=== PATIENT | female | born 1940 | race Two or more races ===

== ENCOUNTER 2017-07-05 20:13 | Inpatient (IN) | payer MEDICARE, OTHER ==
[~2017-07-05] VITALS: Ht 157.5 cm; Wt 52.2 kg
--- NOTE | 2017-07-05 20:20 | NUR ---
PT BIB[facility] FROM [facility] FOR HYPOTENSION, PER EMS, PT IS USUALLY HYPOTENSIVE, PT ON MONITOR, VSS, BP IS NORMAL, NO FLUID WAS GIVEN PRIRO TO ARRIVAL, PT IN GOWN, IV PLACED LABS DRAWN, PT IS CONTRACTED, PT IS NON VERBAL, MD AT BEDSIDE WILL CONTINUE TO MONITOR.
[2017-07-05 20:54] LABS: BASOPHILS # (AUTO) 0.1 /CMM (0.0-0.2); BASOPHILS % (AUTO) 1.1 % (0.0-2.0); EOSINOPHILS # (AUTO) 0.3 /CMM (0.0-0.7); EOSINOPHILS % (AUTO) 3.5 % (0.0-6.0); HEMATOCRIT 33 % (33-45); HEMOGLOBIN 10.9 g/dL (11.5-14.8); LYMPHOCYTES # (AUTO) 1.8 /CMM (0.8-4.8); LYMPHOCYTES % (AUTO) 22.1 % (20.0-44.0); MEAN CORPUSCULAR HEMOGLOBIN 31 PG (26.0-33.0); MEAN CORPUSCULAR HGB CONC 33 g/dl (31.0-36.0); MEAN CORPUSCULAR VOLUME 93 fL (82-100); MONOCYTES # (AUTO) 0.4 /CMM (0.1-1.30); MONOCYTES % (AUTO) 5.4 % (2.0-12.0); NEUTROPHILS # (AUTO) 5.5 /CMM (1.8-8.9); NEUTROPHILS % (AUTO) 67.9 % (43.0-81.0); PLATELET COUNT (AUTO) 211 /CMM (150-450); RDW COEFFICIENT OF VARIATION 13.4 (11.5-15.0); RED BLOOD CELL COUNT(AUTO) 3.53 MIL/uL (4.0-5.2); WHITE BLOOD COUNT (AUTO) 8.1 K/uL (4.3-11.0)
[2017-07-05 21:11] LABS: INR 0.92 (0.87-1.13); PROTHROMBIN TIME 9.6 SECS (9.5-12.7)
[2017-07-05 21:18] LABS: ALANINE AMINOTRANSFERASE 25 U/L (12-78); ALBUMIN 2.3 g/dL (3.4-5.0); ALKALINE PHOSPHATASE 60 U/L (46-116); ASPARTATE AMINOTRANSFERASE 42 U/L (15-37); BILIRUBIN,TOTAL 0.5 mg/dL (0.2-1.0); CALCIUM, SERUM 8.3 mg/dL (8.5-10.1); CARBON DIOXIDE 26 mmol/L (21-32); CHLORIDE 97 mmol/L (98-107); CREATININE 3.6 mg/dL (0.6-1.3); GLUCOSE 305 mg/dL (74-106); POTASSIUM 4.3 mmol/L (3.5-5.1); SODIUM SERUM 135 mmol/L (136-145); TOTAL PROTEIN, SERUM 6.8 g/dL (6.4-8.2)
[2017-07-05 21:19] LABS: TROPONIN I < 0.017 ng/mL (0.00-0.056)
[2017-07-05 21:23] LABS: UREA NITROGEN, BLOOD 184 mg/dL (7-18)
[2017-07-05] MEDS ORDERED: IV NS 0.9% 1,000 ML BAG IV ONE ×2 (21:30→22:00)
--- NOTE | 2017-07-05 21:43 | NUR ---
CALLED NURSING BUSINESS EDUCATION INSTRUCTOR FOR M/S BED
[2017-07-05] MEDS ORDERED: PIPERACILLIN /TAZOBACTAM 2.25 G VIAL IV ONE (21:45)
[2017-07-05] MEDS ORDERED: PIPERACILLIN /TAZOBACTAM 2.25 G in IV D5W 50 ML IV ONE (22:00)
--- NOTE | 2017-07-05 22:05 | NUR ---
PATIENT ASSIGNED TO MS [id number]
--- NOTE | 2017-07-05 22:43 | NUR ---
IN AND OUT CATHETER PREFORMED BY DYLON DUFFY PER MD ORDER, URINE COLLECTED AND SENT TO LAB MD MADE AWARE WILL CONTINUE TO MONITOR.
--- NOTE | 2017-07-05 22:50 | NUR ---
RN NOTE PT ARRIVED ON UNIT. NON VERBAL BUT AWAKE AND EYE OPENING. NO S/S OF ANY DISTRESS, BREATHING NON-LABORED AND EVEN. SKIN WARM TO TOUCH, NON-DIAPHORETIC. TELE SHOWS ST IN 100'S. SKIN ISSUES DOCUMENTED. IV FLUID AND ABX INFUSING FROM E.R. SEPSIS PROTOCOL WAS INITIATED. G TUBE INTACT AND PATENT, FLUSHED. IV IAP. WILL CONT TO MONITOR.
[2017-07-05 22:59] LABS: BILIRUBIN,URINE NEGATIVE (NEGATIVE); BLOOD, URINE NEGATIVE Ery/uL (NEGATIVE); COLOR,URINE YELLOW (YELLOW); KETONES,URINE NEGATIVE (NEGATIVE); LEUKOCYTE ESTERASE ,URINE NEGATIVE (NEGATIVE); NITRITE, URINE NEGATIVE (NEGATIVE); PH,URINE 5.5 (5.0-8.0); PROTEIN,URINE NEGATIVE (NEGATIVE); UGLUCOSE NEGATIVE (NEGATIVE); UROBILINOGEN,URINE 0.2 EU/dL (0.2)
[2017-07-05 23:02] LABS: APPEARANCE,URINE HAZY (CLEAR)
[2017-07-05 23:10] LABS: BACTERIA,URINE None seen /HPF (None Seen); CALCIUM OXALATE CRYSTALS,UR Moderate /HPF (None Seen); RBC,URINE NONE SEEN /HPF (0-2); SQUAMOUS EPITHELIAL CELL,UR Few /HPF (None Seen); URINE AMORPHOUS URATE Many /HPF (None Seen); WBC,URINE NONE SEEN /HPF (0-3)
[2017-07-05 23:50] VITALS: BP 98/50
[2017-07-06] VITALS (7 sets, daily range): BP systolic 99–144; BP diastolic 52–82
--- NOTE | 2017-07-06 | NUR ---
RN NOTE SPOKE WITH DR DAN, ORDERS CARRIED OUT. F/C INSERTED.
[2017-07-06] MEDS ORDERED: METF500T4 PO (00:16)
[2017-07-06] MEDS ORDERED: INSU3INS9 SQ (00:16)
[2017-07-06] MEDS ORDERED: MULT-331 PO (00:16)
[2017-07-06] MEDS ORDERED: LISI10TA59 GT (00:16)
[2017-07-06] MEDS ORDERED: ACET-868 PO (00:16)
[2017-07-06] MEDS ORDERED: METO25TA6 PO (00:16)
[2017-07-06] MEDS ORDERED: NA P133E RC (00:16)
[2017-07-06] MEDS ORDERED: ASPI325T2 PO (00:16)
[2017-07-06] MEDS ORDERED: DOCU-25 PO (00:16)
[2017-07-06] MEDS ORDERED: NUT.237L67 PO (00:21)
[2017-07-06] MEDS ORDERED: NUTR100037 GT (00:41)
[2017-07-06] MEDS ORDERED: RENAL NOVASOURCE 1,000 ML BOTTLE GT PRN ×3 (01:00→10:00)
[2017-07-06] MEDS ORDERED: IV NS 0.9% 1,000 ML BAG IV PRN (01:00)
[2017-07-06] MEDS: BLOOD SUGAR DIAGNOSTIC 1 EACH STRIP IN SCH ×5 (01:24→22:11)
[2017-07-06] MEDS: INSULIN REGULAR, HUMAN 100 UNIT/ML 3 ML VIAL SQ PRN ×5 (01:29→22:15)
[2017-07-06] MEDS ORDERED: DEXTROSE 50%-WATER 50 ML DISP.SYRIN IV PRN (01:30)
[2017-07-06] MEDS ORDERED: BLOOD SUGAR DIAGNOSTIC 1 EACH STRIP IN SCH (01:30)
--- NOTE | 2017-07-06 06:53 | NUR ---
RN OTE NO SIGNFICANT CHANGES OVERNIGHT. PT NON-VERBAL, EYE OPENING. TELE SHOWS ST, NO S/S OF ANY DISTRESS AT THIS TIME. BREATHING NON-LABORED AND EVEN. IV INTACT AND PATENT, TOLERATING FLUIDS WELL. F/C DRAINING. GTF INFUSING WELL. ALL NEEDS ATTENED TO, WILL F/U WITH DAY SHIFT FOR SUMAN.
[2017-07-06 07:00] LABS: EOSINOPHILS # (AUTO) 0.2 /CMM (0.0-0.7); EOSINOPHILS % (AUTO) 3.3 % (0.0-6.0); LYMPHOCYTES # (AUTO) 0.9 /CMM (0.8-4.8); MEAN CORPUSCULAR VOLUME 93 fL (82-100); MONOCYTES # (AUTO) 0.4 /CMM (0.1-1.30); RDW COEFFICIENT OF VARIATION 14.5 (11.5-15.0)
[2017-07-06 07:04] LABS: BASOPHILS % (AUTO) 0.4 % (0.0-2.0); HEMATOCRIT 34 % (33-45); HEMOGLOBIN 11.2 g/dL (11.5-14.8); MEAN CORPUSCULAR HEMOGLOBIN 31 PG (26.0-33.0); MEAN CORPUSCULAR HGB CONC 33 g/dl (31.0-36.0); MONOCYTES % (AUTO) 6.7 % (2.0-12.0); NEUTROPHILS # (AUTO) 4.7 /CMM (1.8-8.9); NEUTROPHILS % (AUTO) 75.6 % (43.0-81.0); RED BLOOD CELL COUNT(AUTO) 3.61 MIL/uL (4.0-5.2)
--- NOTE | 2017-07-06 07:30 | NUR ---
N RECEIVED PATIENT ON BED, NONVERBAL, OPENS EYES, NSR ON MONITOR,GTUBE FEEDING W/ NOVASOURCE AT 30ML/HOUR INFUSING WELL.REPOSITIONED FOR COMFORT, WILL MONITOR PATIENT'S CONDITION.
[2017-07-06 07:34] LABS: CALCIUM, SERUM 7.7 mg/dL (8.5-10.1); CARBON DIOXIDE 22 mmol/L (21-32); CHLORIDE 105 mmol/L (98-107); CREATININE 2.8 mg/dL (0.6-1.3); GLUCOSE 264 mg/dL (74-106); MAGNESIUM 2.8 mg/dL (1.8-2.4); PHOSPHORUS 3.7 mg/dL (2.5-4.9); POTASSIUM 4.2 mmol/L (3.5-5.1); SODIUM SERUM 143 mmol/L (136-145)
[2017-07-06 07:41] LABS: UREA NITROGEN, BLOOD 151 mg/dL (7-18)
[2017-07-06] MEDS ORDERED: IV NS 0.9% 1,000 ML IV PRN (09:00)
[2017-07-06] MEDS ORDERED: NA PHOS,M-B/NA PHOS,DI-BA 1 EA ENEMA RC PRN (09:30)
[2017-07-06 10:15] LABS: WHITE BLOOD COUNT (AUTO) 6.3 K/uL (4.3-11.0)
[2017-07-06 10:17] LABS: LYMPHOCYTES % (MANUAL) 22 % (16-48); MONOCYTES % (MANUAL) 1 % (0-11.0); NEUTROPHILS % (MANUAL) 77 (42-76)
[2017-07-06 10:18] LABS: PLATELET COUNT (AUTO) 179 /CMM (150-450)
--- NOTE | 2017-07-06 11:00 | NUR ---
ms frances was seen by dr. frankel w/ orders made and carried out.
[2017-07-06] MEDS ORDERED: ACETAMINOPHEN 325 MG TABLET PO PRN (13:00)
--- NOTE | 2017-07-06 17:15 | NUR ---
ms rn blood sugar - 288 - 6 units of regular insulin given sq, family at bedside, cannot bring soliqua insulin, pharmacy is aware, will replace w/ levemir.
--- NOTE | 2017-07-06 17:19 | NUR ---
ms rn patient pulled out her iv, will replace it.
--- NOTE | 2017-07-06 19:20 | NUR ---
RN NOTES RECEIVED PT AWAKE, HOB ELEVATED, SO SOB, NOT IN DISTRESS, ON ROOM AIR AND TOLERATED WELL.PT ALERT, NOEN VERBAL, OPENS EYES TO TACTILE AND VERBAL STIMULI. NO SIGNS OF PAIN AND DISCOMFORT NOTED. IV ACCESS ON RIGHT UPPER ARM PATENT AND INTACT. GT INTACT WITH ONGOING JHON SOURCE RENAL AT 30CC/HR, NO RESIDUAL NOTED. DRESSING ON LEFT FOOT INTACT, DRY AND CLEAN. PT NOTED CONSTANTLY MOVING IN BED. KEPT BED IN THE LOWEST POSITION, LOCKED, SIDE RAILS X2 UP, BED ALARM ON, WITH CALL LIGHT WITH IN REACH. SAFETY MEASURES IN PLACED. WILL CONTINUE TO MONITOR PT.
[2017-07-06] MEDS ORDERED: INSULIN DETEMIR 100 UNIT/ML CARTRIDGE SQ SCH (22:00)
[2017-07-06] MEDS: DOCUSATE SODIUM 100 MG CAPSULE PO SCH (22:11)
--- NOTE | 2017-07-06 22:11 | NUR ---
RN NOTES BLOOD SUGAR CHECKED 412 MG/DL, 10 UNITS REGULAR INSULIN GIVEN SUBCU, SCHEDULED LEVEMIR [address] RICK MADE AWARE, NO NEW ORDERS MADE.
[2017-07-07] VITALS: BP 137/79
[2017-07-07 04:00] VITALS: BP 133/72
[2017-07-07 06:32] LABS: BASOPHILS % (AUTO) 0.3 % (0.0-2.0); EOSINOPHILS # (AUTO) 0.2 /CMM (0.0-0.7); HEMATOCRIT 36 % (33-45); HEMOGLOBIN 11.8 g/dL (11.5-14.8); LYMPHOCYTES # (AUTO) 0.9 /CMM (0.8-4.8); LYMPHOCYTES % (AUTO) 15.3 % (20.0-44.0); MEAN CORPUSCULAR HEMOGLOBIN 31 PG (26.0-33.0); MEAN CORPUSCULAR HGB CONC 33 g/dl (31.0-36.0); MEAN CORPUSCULAR VOLUME 94 fL (82-100); MONOCYTES # (AUTO) 0.5 /CMM (0.1-1.30); MONOCYTES % (AUTO) 9.1 % (2.0-12.0); NEUTROPHILS # (AUTO) 4.1 /CMM (1.8-8.9); NEUTROPHILS % (AUTO) 72.3 % (43.0-81.0); PLATELET COUNT (AUTO) 250 /CMM (150-450); RDW COEFFICIENT OF VARIATION 14.9 (11.5-15.0); RED BLOOD CELL COUNT(AUTO) 3.87 MIL/uL (4.0-5.2); WHITE BLOOD COUNT (AUTO) 5.7 K/uL (4.3-11.0)
[2017-07-07] MEDS: BLOOD SUGAR DIAGNOSTIC 1 EACH STRIP IN SCH ×2 (06:32→12:30)
--- NOTE | 2017-07-07 06:32 | NUR ---
RN NOTES BLOOD SUGAR CHECKED 446 MG/DL. 10 UNITS REGULAR INSULIN GIVEN SUBCU. WILL PAGED DR DAN. WILL CONTINUE TO MONITOR PT.
[2017-07-07] MEDS: INSULIN REGULAR, HUMAN 100 UNIT/ML 3 ML VIAL SQ PRN ×3 (06:34→18:00)
[2017-07-07 06:46] LABS: ALANINE AMINOTRANSFERASE 26 U/L (12-78); ALBUMIN 2.5 g/dL (3.4-5.0); ALKALINE PHOSPHATASE 76 U/L (46-116); ASPARTATE AMINOTRANSFERASE 25 U/L (15-37); BILIRUBIN,TOTAL 0.3 mg/dL (0.2-1.0); CALCIUM, SERUM 9.2 mg/dL (8.5-10.1); CARBON DIOXIDE 27 mmol/L (21-32); CHLORIDE 116 mmol/L (98-107); CREATININE 1.6 mg/dL (0.6-1.3); MAGNESIUM 2.8 mg/dL (1.8-2.4); PHOSPHORUS 1.8 mg/dL (2.5-4.9); POTASSIUM 3.5 mmol/L (3.5-5.1); SODIUM SERUM 152 mmol/L (136-145); TOTAL PROTEIN, SERUM 7.1 g/dL (6.4-8.2)
[2017-07-07 06:53] LABS: GLUCOSE 459 mg/dL (74-106)
[2017-07-07 06:54] LABS: UREA NITROGEN, BLOOD 89 mg/dL (7-18)
--- NOTE | 2017-07-07 07:30 | NUR ---
RN NOTES PT ASLEEP, HOB ELEVATED, NO SOB, NOT IN DISTRESS, ON ROOM AIR AND TOLERATED WELL. VITAL SIGNS STABLE, AFEBRILE. TELEMONITOR READS SINUS TACH AT 124. NO SIGNS OF PAIN AND DISCOMFORT. NO EPISODE OF NAUSEA AND VOMITING. SKIN CARE AND WOUND CARE DONE. KEPT CLEAN AND DRY. TURNED AND REPOSITION Q2H. BOTH HEELS OFF LOADED. AWAITING FOR DR DAN TO CALL BACK. WILL ENDORSE TO MORNING RN FOR CONTINUITY OF CARE.
--- NOTE | 2017-07-07 07:30 | NUR ---
MEASUREMENT ANALYST NOTES RECEIVED PATIENT AWAKE, HOB ELEVATED, NO ACUTE DISTRESS, NO SOB NOTED, ON ROOM AIR AND TOLERATED WELL. PATIENT ALERT, NON VERBAL, OPENS EYES TO TACTILE AND VERBAL STIMULI. NO SIGNS OF PAIN AND DISCOMFORT NOTED. IV SITE PATENT AND INTACT. GT INTACT WITH ONGOING NOVASOURCE RENAL AT 30CC/HR, NO RESIDUAL NOTED. DRESSING ON LEFT FOOT INTACT, DRY AND CLEAN. KEPT BED IN THE LOWEST POSITION, LOCKED, SIDE RAILS X2 UP, BED ALARM ON, WITH CALL LIGHT WITH IN REACH. SAFETY MEASURES IN PLACED. WILL CONTINUE TO MONITOR ACCORDINGLY.
[2017-07-07 08:00] VITALS: BP 115/72
[2017-07-07] MEDS ORDERED: MULTIVITAMINS,THERAGRAN 1 UDTAB TABLET PO SCH (09:00)
--- NOTE | 2017-07-07 09:03 | NUR ---
RN NOTES RECEIVED A CALL FROM DR VERNON. NOTIFIED HIM ABOUT PATIENT BLOOD GLUCOSE LEVELS. PER MD, HE'S GOING TO SEE THE PATIENT TODAY. NO NEW ORDERS.
[2017-07-07] MEDS: VIT B CMPLX 3/FA/VIT C/BIOTIN 1 TAB TABLET PO SCH (10:00)
[2017-07-07] MEDS: ASPIRIN 325 MG TABLET PO SCH (10:00)
[2017-07-07 12:00] VITALS: BP_SYST 132; BP_SYST 150; BP_DIAS 94
[2017-07-07] MEDS: RENAL NOVASOURCE 1,000 ML BOTTLE GT PRN (12:49)
[2017-07-07 16:00] VITALS: BP 135/90
[2017-07-07] MEDS ORDERED: NEUTRA PHOS 1 POWD.PACKET GT ONE (16:00)
--- NOTE | 2017-07-07 16:00 | NUR ---
RN NOTES CALLED DR VERNON REGARDING PATIENT'S VTE SCORE, NEW ORDER OF HEPARIN 5000 UNITS SQ EVERY 12 HOURS.
--- NOTE | 2017-07-07 16:10 | NUR ---
RN NOTES RECEIVED A CALL FROM MICROBIOLOGY, PATIENT POSITIVE FOR MRSA NARES. NOTIFIED DR VERNON.
[2017-07-07] MEDS ORDERED: DEXTROSE 50%-WATER 50 ML DISP.SYRIN IV PRN (16:30)
[2017-07-07] MEDS: BLOOD SUGAR DIAGNOSTIC 1 EACH STRIP VI SCH ×2 (17:43→21:20)
[2017-07-07] MEDS: IV 1/2NS 1000 ML 1,000 ML IV PRN (17:48)
--- NOTE | 2017-07-07 18:44 | NUR ---
CHIEF LIBRARIAN CIRCULATION DEPARTMENT NOTES PATIENT IN BED RESTING. NO ACUTE DISTRESS, NO SOB NOTED. ALL NEEDS ATTENDED AND PROVIDED. KEPT PATIENT CLEAN AND DRY. REPOSITIONED PATIENT EVERY 2 HOURS. BED IN LOW POSITION, SIDERAILS UPX2. CALL LIGHT IN REACH. WILL ENDORSED TO INTERNET SALES REPRESENTATIVE RN FOR SUMAN.
--- NOTE | 2017-07-07 19:00 | NUR ---
RN NOTES RECEIVED PT AWAKE, NON VERBAL, OPEN EYES, NOT IN ACUTE DISTRESS, ON ROOM AIR AND TOLERATED WELL. GT INTACT WITH ONGOING NOVOSOURCE RENAL AT 30CC/HR, NO RESIDUAL NOTED. KEPT BED IN THE LOWEST POSITION, LOCKED, SIDE RAILS X2 UP, CALL LIGHT WITH IN REACH. SAFETY MEASURES PLACED. WILL CONTINUE TO MONITOR.
[2017-07-07 20:00] VITALS: BP 167/90
[2017-07-07] MEDS: MUPIROCIN OINT 2% 22 GM TUBE SCH (21:12)
[2017-07-07] MEDS: HEPARIN SODIUM, PORCINE 5000 UNITS/1 ML VIAL SQ SCH (21:13)
[2017-07-07] MEDS: DOCUSATE SODIUM 100 MG CAPSULE PO SCH (21:13)
[2017-07-07] MEDS: *INSULIN REGULAR(HUMULIN R)HUM 100 UNIT/ML VIAL SQ PRN (21:23)
[2017-07-07] MEDS ORDERED: INSULIN DETEMIR 100 UNIT/ML CARTRIDGE SQ SCH (22:00)
[2017-07-08] VITALS (8 sets, daily range): BP systolic 102–163; BP diastolic 84–96
[2017-07-08] MEDS: IV 1/2NS 1000 ML 1,000 ML IV PRN ×2 (03:54→15:56)
[2017-07-08] MEDS: BLOOD SUGAR DIAGNOSTIC 1 EACH STRIP VI SCH ×4 (05:39→21:45)
[2017-07-08] MEDS: INSULIN REGULAR, HUMAN 100 UNIT/ML 3 ML VIAL SQ PRN ×3 (05:41→18:24)
--- NOTE | 2017-07-08 06:17 | NUR ---
BODY WORKER CLOSING NOTES PATIENT COMFORTABLY ASLEEP AND EASILY AWAKEN, HEAD OF BED ELEVATED FOR BETTER LUNG EXPANSION. TOLERATING ROOM AIR 02 SAT 98%. IV HYDRATION ONGOING NS 0.45 NS AT 100 CC, IV SITE NO S/S OF INFILTRATED, NOT IN ACUTE DISTRESS. RESPIRATIONS EVEN AND UNLABORED, NO SOB, NO COUGH, SKIN WARM AND DRY TO TOUCH, AFEBRILE, ALL NURSING CARE NEEDS PROVIDED AND RENDERED, NEEDS ATTENDED AND ANTICIPATED, KEPT CLEAN AND DRY AND COMFORTABLE, BLADDER NOT DISTENDED, GOOD SKIN CARE PROVIDED. FREQUENT VISUAL CHECK DONE FOR SAFETY EVERY 2 HOURS. REPOSITIONED EVERY 2 HOURS FOR COMFORT AND SKIN MGT. SAFE HAZARD FREE ENVIRONMENT PROVIDED. CALL LIGHT WITHIN EASY TO REACH, ON LOW BED AT ALL TIMES TO ENSURE SAFETY, WILL ENDORSE TO THE NEXT SHIFT CONTINUE PLAN OF CARE. NO S/S OF HYPO/HYPERGLYCEMIA, F/C INTACT DRAINING YELLOW VIA GRAVITY WITH NO SEDIMENTS, NO HEMATURIA, NO CLOUDINESS. GOOD FC CARE PROVIDED. ATTACH TO TELE MONITOR WITH READING OF 98'S M.D AWARE
--- NOTE | 2017-07-08 07:33 | NUR ---
INFORMATION SYSTEMS SUPERVISOR NOTES RECEIVED PATIENT IN BED RESTING COMFORTABLY. NO ACUTE DISTRESS, NO SOB NOTED. HOB ELEVATED FOR BETTER LUNG EXPANSION. ON ROOM AIR WITH 98% SATURATION. IV SITE INTACT AND PATENT, RUNNING 0.45 NS AT 100 ML/HR. SKIN WARM AND DRY TO TOUCH, AFEBRILE. GTUBE IN PLACE, SITE CLEAN AND DRY. KEPT PATIENT SAFE AND COMFORTABLE. BED IN LOW POSITION, SIDERAILSUPX2, LOCKED, CALL LIGHT WITHIN REACH. WILL CONTINUE TO MONITOR ACCORDINGLY.
[2017-07-08 08:06] LABS: CALCIUM, SERUM 8.3 mg/dL (8.5-10.1); CARBON DIOXIDE 24 mmol/L (21-32); CHLORIDE 118 mmol/L (98-107); CREATININE 1.3 mg/dL (0.6-1.3); PHOSPHORUS 2.2 mg/dL (2.5-4.9); POTASSIUM 3.7 mmol/L (3.5-5.1); SODIUM SERUM 155 mmol/L (136-145); UREA NITROGEN, BLOOD 43 mg/dL (7-18)
[2017-07-08 08:36] LABS: GLUCOSE 360 mg/dL (74-106)
[2017-07-08] MEDS: ASPIRIN 325 MG TABLET PO SCH (09:29)
[2017-07-08] MEDS: VIT B CMPLX 3/FA/VIT C/BIOTIN 1 TAB TABLET PO SCH (09:29)
--- NOTE | 2017-07-08 09:30 | NUR ---
RN NOTES WOUND CONSULT NURSE ON BED SIDE.
[2017-07-08] MEDS: MUPIROCIN OINT 2% 22 GM TUBE SCH ×2 (09:31→21:44)
[2017-07-08] MEDS: HEPARIN SODIUM, PORCINE 5000 UNITS/1 ML VIAL SQ SCH ×2 (09:33→21:45)
--- NOTE | 2017-07-08 10:22 | NUR ---
WOUND CARE CONSULT PATIENT SEEN AND SKIN INTEGRITY ASSESSMENT DONE. SEE STATISTICAL PROGRAMMER ANALYST ASSESSMENT IN PCS FOR TODAY ALONG WITH ALL RECOMMENDATIONS. CONTINUE BILATERAL HEEL FLOATING, TURNING Q 2 HOURS PATIENT CONDITION PERMITS AND USE OF Z GUARD FOR SKIN/MOISTURE MANAGEMENT. ALL DISCUSSED WITH NURSING AT THE BEDSIDE. JAIRON ISOFLEX LOW AIRLOSS SPECIALTY BED IN USE. CONTINUE ALL PREVENTION MEASURES PER CURRENT PLAN OF CARE. Addendum: 07/08/17 at 1024 by CHARISMA ODONNELL WNDNU Amended: Links added.
[2017-07-08] MEDS ORDERED: HYDROGEL DRESSING 90 GM TUBE TP PRN (10:30)
[2017-07-08] MEDS: HYDROGEL DRESSING 90 GM TUBE TP SCH (12:39)
[2017-07-08] MEDS: Z GUARD REMEDY 2 OZ OINT TP SCH (12:40)
[2017-07-08] MEDS ORDERED: NEUTRA PHOS 1 POWD.PACKET NG ONE (13:00)
[2017-07-08] MEDS: RENAL NOVASOURCE 1,000 ML BOTTLE GT PRN (14:00)
--- NOTE | 2017-07-08 18:53 | NUR ---
SOLDERER ASSEMBLY REPAIR CLOSING NOTES PATIENT IN BED RESTING. NO ACUTE DISTRESS, NO SOB NOTED. IV SITE INTACT AND PATENT. GTUBE IN PLACE. ALL NEEDS ATTENDED AND PROVIDED. REPOSITION PATIENT EVERY 2 HOURS. WOUND CARE DONE. KEPT PATIENT SAFE AND COMFORTABLE. BED IN LOW POSITION, LOCKED, SIDERAILS UP X2, HOB ELEVATED, CALL LIGHT IN REACH. WILL ENDORSED TO OFFSET PRINTING OPERATOR RN FOR CONTINUITY OF CARE.
--- NOTE | 2017-07-08 19:50 | NUR ---
RN INITIAL NOTES: RECEIVED REPORT FROM FLORINA DUFFY, PT IN BED, NON VERBAL OPEN EYES, ON ROOM AIR RESPIRATION EVEN AND UNLABORED, NO FACIAL GRIMACE NOTED, ON SINUS TACH HR 105, PT HAS IV ACCESS ON JENNIFER, PATENT AND FLUSHING WELL, INFUSING WITH 0.45 NS AT 100ML/HR. ALSO PT HAS GTUBE FEEDING RECEIVING NOVASOURCE RENAL AT 30CC/HR, SAFETY PRECAUTIONS FOR FALL INITIATED CALL LIGHT IN REACH, BLE OFFLOADED, PT TO HAVE 200ML OF FREE WATER FLUSH Q4HR ORDERED. WILL CONTINUE TO MONITOR
--- NOTE | 2017-07-08 20:30 | NUR ---
GTUBE RESIDUAL CHECK: PATENCY CHECK PERFORMED AND GTUBE RESIDUAL WAS CHECKED AT THIS TIME, OBTAINED 5ML OF RESIDUAL, ABDOMEN IS SOFT AND WITH ACTIVE BOWEL SOUND NOTED UPON AUSCULTATION
--- NOTE | 2017-07-08 20:45 | NUR ---
WOUND: NOTED OPEN BLISTER ON PT'S RFA, CLEANSED WITH NS PAT DRY HYDROGEL AND MEPILEX APPLIED, TOOK PHOTO AND ATTACHED TO CHART
[2017-07-08] MEDS: INSULIN DETEMIR 100 UNIT/ML CARTRIDGE SQ SCH (21:47)
[2017-07-08] MEDS: *INSULIN REGULAR(HUMULIN R)HUM 100 UNIT/ML VIAL SQ PRN (21:49)
--- NOTE | 2017-07-08 21:50 | NUR ---
BLOOD SUGAR: PT'S BLOOD SUGAR CHECK REVEAL 220, 4UNITS OF INSULIN GIVEN PER SLIDING SCALE, PT ON GTUBE FEEDING NOVASOURCE RENAL AT 30CC/HR, ALSO PT RECEIVING 1/2 NS AT 100ML/HR, WILL MONITOR PT FOR ANY S/S OF HYPOGLYCEMIA
[2017-07-08] MEDS: DOCUSATE SODIUM 100 MG CAPSULE PO SCH (22:12)
[2017-07-08] MEDS: Z GUARD REMEDY 2 OZ OINT TP PRN (22:30)
--- NOTE | 2017-07-08 22:44 | NUR ---
RN NOTES: 200ML OF FREE WATER FLUSH ADMINISTERED TO THE PT'S GTUBE ORDERED
[2017-07-09] VITALS (10 sets, daily range): BP systolic 105–148; BP diastolic 53–85
--- NOTE | 2017-07-09 02:27 | NUR ---
RN NOTES: FREE WATER FLUSH OF 200ML ADMINISTERED VIA GTUBE
[2017-07-09] MEDS: IV 1/2NS 1000 ML 1,000 ML IV PRN ×2 (05:07→21:01)
[2017-07-09] MEDS: BLOOD SUGAR DIAGNOSTIC 1 EACH STRIP VI SCH ×4 (06:18→21:08)
[2017-07-09] MEDS: INSULIN REGULAR, HUMAN 100 UNIT/ML 3 ML VIAL SQ PRN ×3 (06:21→18:03)
--- NOTE | 2017-07-09 06:21 | NUR ---
ACCU CHECK: BLOOD SUGAR CHECKED AND REVEAL 263, 9UNITS OF INSULIN GIVEN PER SLIDING SCALE, WILL MONITOR PT FOR ANY S/S OF HYPOGLYCEMIA, PT ON GTUBE FEEDING AND RECEIVING IVF
--- NOTE | 2017-07-09 06:43 | NUR ---
cable television installer closing notes: pt in bed, remains on sinus tach hr 102 , open eyes, non verbal, no facial grimace noted at this time, dimitri iv g 22 patent and flushing well, infusing with 0.45 ns at 100ml/hr, tolerated well, on gtube feeding novasource renal at 30cc/hr, tolerated well by the pt, ble offloaded, vs remains stable, needs attended, safety precautions for fall initiated call light in reach will endorse to day rn for jose rafael.
[2017-07-09 07:31] LABS: BASOPHILS % (AUTO) 0.3 % (0.0-2.0); EOSINOPHILS # (AUTO) 0.4 /CMM (0.0-0.7); EOSINOPHILS % (AUTO) 6.8 % (0.0-6.0); HEMATOCRIT 34 % (33-45); HEMOGLOBIN 11.2 g/dL (11.5-14.8); LYMPHOCYTES # (AUTO) 1.7 /CMM (0.8-4.8); LYMPHOCYTES % (AUTO) 30.5 % (20.0-44.0); MEAN CORPUSCULAR HEMOGLOBIN 31 PG (26.0-33.0); MEAN CORPUSCULAR HGB CONC 33 g/dl (31.0-36.0); MEAN CORPUSCULAR VOLUME 94 fL (82-100); MONOCYTES # (AUTO) 0.5 /CMM (0.1-1.30); MONOCYTES % (AUTO) 8.2 % (2.0-12.0); NEUTROPHILS # (AUTO) 3.1 /CMM (1.8-8.9); NEUTROPHILS % (AUTO) 54.2 % (43.0-81.0); PLATELET COUNT (AUTO) 242 /CMM (150-450); RDW COEFFICIENT OF VARIATION 14.8 (11.5-15.0); WHITE BLOOD COUNT (AUTO) 5.6 K/uL (4.3-11.0)
--- NOTE | 2017-07-09 08:00 | NUR ---
AM RN NOTES RECEIVED PT IN STABLE CONDITION, AWAKE, NO SOB OR DISTRESS NOTED, NO S/S OF PAIN OR DISCOMFORT, HOB ELEVATED, WILL MONITOR.
[2017-07-09 08:03] LABS: ALANINE AMINOTRANSFERASE 29 U/L (12-78); ALBUMIN 2.2 g/dL (3.4-5.0); ALKALINE PHOSPHATASE 71 U/L (46-116); ASPARTATE AMINOTRANSFERASE 20 U/L (15-37); BILIRUBIN,TOTAL 0.4 mg/dL (0.2-1.0); CARBON DIOXIDE 27 mmol/L (21-32); CHLORIDE 111 mmol/L (98-107); CREATININE 1.1 mg/dL (0.6-1.3); GLUCOSE 279 mg/dL (74-106); MAGNESIUM 1.5 mg/dL (1.8-2.4); PHOSPHORUS 3.1 mg/dL (2.5-4.9); POTASSIUM 3.3 mmol/L (3.5-5.1); SODIUM SERUM 147 mmol/L (136-145); TOTAL PROTEIN, SERUM 6.4 g/dL (6.4-8.2); UREA NITROGEN, BLOOD 27 mg/dL (7-18)
[2017-07-09] MEDS: ASPIRIN 325 MG TABLET PO SCH (08:40)
[2017-07-09] MEDS: VIT B CMPLX 3/FA/VIT C/BIOTIN 1 TAB TABLET PO SCH (08:40)
[2017-07-09] MEDS: HEPARIN SODIUM, PORCINE 5000 UNITS/1 ML VIAL SQ SCH ×2 (08:43→21:04)
[2017-07-09] MEDS: MUPIROCIN OINT 2% 22 GM TUBE SCH ×2 (08:45→21:03)
[2017-07-09] MEDS: HYDROGEL DRESSING 90 GM TUBE TP SCH (08:46)
[2017-07-09] MEDS: Z GUARD REMEDY 2 OZ OINT TP SCH (08:47)
[2017-07-09] MEDS ORDERED: POTASSIUM CHLORIDE 20 MEQ TAB.PRT.SR PO SCH (11:00)
[2017-07-09] MEDS ORDERED: POTASSIUM CHLORIDE 20 MEQ POWDER PACKET PO ONE (11:30)
[2017-07-09] MEDS: Magnesium 1GM/D5W 100ML PREMIX 100 ML IV SCH ×2 (11:37→12:39)
--- NOTE | 2017-07-09 18:27 | NUR ---
PT IN STABLE CONDITION, NO SOB OR DISTRESS NOTED, NO PAIN OR DISCOMFORT, TOLERATES WELL TO GT FEEDING, WILL INDORSE TO NEXT SHIFT FOR SUMAN.
--- NOTE | 2017-07-09 19:00 | NUR ---
OPERATOR ENGINEER NOTES RECEIVED PT IN BED, NON VERBAL, NOT IN ACUTE DISTRESS, IV SITE INTACT NO S/S OF INFILTRATION. CALL LIGHT WITHIN REACH. SAFETY MEASURES IN PLACE, ON LOW BED, WILL CONTINUE TO MONITOR PT.
[2017-07-09] MEDS: RENAL NOVASOURCE 1,000 ML BOTTLE GT PRN (19:40)
[2017-07-09] MEDS: DOCUSATE SODIUM 100 MG CAPSULE PO SCH (21:03)
[2017-07-09] MEDS: INSULIN DETEMIR 100 UNIT/ML CARTRIDGE SQ SCH (21:08)
[2017-07-09] MEDS: *INSULIN REGULAR(HUMULIN R)HUM 100 UNIT/ML VIAL SQ PRN (21:10)
[2017-07-10] VITALS: BP 120/74
[2017-07-10 04:00] VITALS: BP 126/70
[2017-07-10] MEDS: BLOOD SUGAR DIAGNOSTIC 1 EACH STRIP VI SCH ×2 (05:31→12:09)
[2017-07-10] MEDS: INSULIN REGULAR, HUMAN 100 UNIT/ML 3 ML VIAL SQ PRN ×2 (05:33→12:16)
--- NOTE | 2017-07-10 06:31 | NUR ---
TONGUE CARRIER CLOSING NOTES PATIENT COMFORTABLY ASLEEP AND EASILY AWAKEN, PT NON VERBAL MOANS, EYE OPENS. HEAD OF BED ELEVATED FOR BETTER LUNG EXPANSION. TOLERATING ROOM AIR 02 SAT 99%. STILL ONGOING IV HYDRATION ONGOING NS 0.45 NS AT 100 CC, IV SITE NO S/S OF INFILTRATED PATENT AND FLUSHED, NO S/S OF HYPO/HYPERGLYCEMIA, F/C INTACT DRAINING YELLOW VIA GRAVITY WITH NO SEDIMENTS, NO HEMATURIA, NO CLOUDINESS. GOOD FC CARE PROVIDED. NOT IN ACUTE DISTRESS. RESPIRATIONS EVEN AND UNLABORED, NURSING CARE RENDERED, NEEDS ATTENDED AND ANTICIPATED, KEPT CLEAN AND DRY AND COMFORTABLE, GOOD SKIN CARE PROVIDED. FREQUENT VISUAL CHECK DONE FOR SAFETY EVERY 2 HOURS. REPOSITIONED EVERY 2 HOURS FOR COMFORT AND SKIN MGT. SAFE HAZARD FREE ENVIRONMENT PROVIDED. CALL LIGHT WITHIN EASY TO REACH, ON LOW BED AT ALL TIMES TO ENSURE SAFETY, WILL ENDORSE TO THE NEXT SHIFT CONTINUE PLAN OF CARE. GT FEEDING INFUSING NOVASOURCE 30 CC/HR TOLERATED WELL.
[2017-07-10 06:53] LABS: BASOPHILS % (AUTO) 0.4 % (0.0-2.0); EOSINOPHILS # (AUTO) 0.4 /CMM (0.0-0.7); EOSINOPHILS % (AUTO) 6.9 % (0.0-6.0); HEMATOCRIT 32 % (33-45); HEMOGLOBIN 10.3 g/dL (11.5-14.8); LYMPHOCYTES # (AUTO) 1.8 /CMM (0.8-4.8); LYMPHOCYTES % (AUTO) 30.1 % (20.0-44.0); MEAN CORPUSCULAR HEMOGLOBIN 31 PG (26.0-33.0); MEAN CORPUSCULAR HGB CONC 33 g/dl (31.0-36.0); MEAN CORPUSCULAR VOLUME 94 fL (82-100); MONOCYTES # (AUTO) 0.5 /CMM (0.1-1.30); MONOCYTES % (AUTO) 7.9 % (2.0-12.0); NEUTROPHILS # (AUTO) 3.3 /CMM (1.8-8.9); NEUTROPHILS % (AUTO) 54.7 % (43.0-81.0); PLATELET COUNT (AUTO) 262 /CMM (150-450); RDW COEFFICIENT OF VARIATION 14.9 (11.5-15.0); RED BLOOD CELL COUNT(AUTO) 3.36 MIL/uL (4.0-5.2)
[2017-07-10 07:07] LABS: ALANINE AMINOTRANSFERASE 24 U/L (12-78); ALKALINE PHOSPHATASE 74 U/L (46-116); ASPARTATE AMINOTRANSFERASE 23 U/L (15-37); BILIRUBIN,TOTAL 0.2 mg/dL (0.2-1.0); CARBON DIOXIDE 25 mmol/L (21-32); CHLORIDE 107 mmol/L (98-107); GLUCOSE 265 mg/dL (74-106); MAGNESIUM 2.2 mg/dL (1.8-2.4); PHOSPHORUS 2.6 mg/dL (2.5-4.9); POTASSIUM 3.3 mmol/L (3.5-5.1); SODIUM SERUM 142 mmol/L (136-145); TOTAL PROTEIN, SERUM 6.1 g/dL (6.4-8.2); UREA NITROGEN, BLOOD 22 mg/dL (7-18)
[2017-07-10 07:09] VITALS: BP 130/70
--- NOTE | 2017-07-10 07:15 | NUR ---
PHOTOVOLTAIC PANEL INSTALLER OPENING NOTE RECEIVED REPORT. PATIENT IS RESTING/SLEEPING IN BED. VS WNL. BED IS LOCKED IN LOW POSITION WILL COME BACK TO ASSESS PATIENT IN 30 MINUTES WHEN PATIENT IS AWAKE. TELE MONITOR READING SINUS TACHYCARDIA W HR 101. PER PIVOT END POLISHER REPORT PATIENT HAS BEEN TACHYCARDIC ALL NIGHT WITH HIGHEST HR 110BPM. NO CHANGE IN CONDITION.
[2017-07-10 08:00] VITALS: BP 139/70
[2017-07-10] MEDS: Z GUARD REMEDY 2 OZ OINT TP SCH (09:59)
[2017-07-10] MEDS: VIT B CMPLX 3/FA/VIT C/BIOTIN 1 TAB TABLET PO SCH (10:00)
[2017-07-10] MEDS: HEPARIN SODIUM, PORCINE 5000 UNITS/1 ML VIAL SQ SCH (10:00)
[2017-07-10] MEDS: HYDROGEL DRESSING 90 GM TUBE TP SCH (10:00)
[2017-07-10] MEDS: MUPIROCIN OINT 2% 22 GM TUBE SCH (10:01)
[2017-07-10] MEDS: ASPIRIN 325 MG TABLET PO SCH (10:01)
[2017-07-10] MEDS ORDERED: INSU100I19 SQ (10:18)
[2017-07-10] MEDS ORDERED: ALLA266C2 TP (10:18)
[2017-07-10] MEDS ORDERED: DOCUSATE SODIUM LIQ 100 MG/10 ML UDC GT PRN (10:30)
[2017-07-10] MEDS ORDERED: POTASSIUM CHLORIDE 20 MEQ POWDER PACKET NG SCH (11:00)
[2017-07-10] MEDS: Z GUARD REMEDY 2 OZ OINT TP PRN (11:56)
[2017-07-10] MEDS: IV 1/2NS 1000 ML 1,000 ML IV PRN (11:57)
--- NOTE | 2017-07-10 14:02 | NUR ---
telemarketer supervisor notes message to [place] to notify of patient discharge. message left. called [facility] and gave report to frances madrid and all questions answered.
--- NOTE | 2017-07-10 14:25 | NUR ---
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 STABLE AT THE TIME OF DISCHARGE. DISCHARGE INSTRUCTION GIVEN TO TRANSPORTING AMBULANCE/EMT AND NURSE AT THE RECEIVING SNF. CADIAC RHYTHM ON D/C SINUS TACHYCARDIA W HR 102. IV DISCONTINUED. CATHETER TIP IS INTACT. PRESSURE DRESSING APPLIED. NO BLEEDING.
== END 2017-07-10 14:25 | DRG 871 ==
LOC: ER 20:19 → TELE 22:21
PROVIDERS: ADMIT Internal Medicine; ATTEND Internal Medicine
DX: A41.9 Sepsis, unspecified organism (principal); N17.0 Acute kidney failure with tubular necrosis; E87.0 Hyperosmolality and hypernatremia; E87.2 Acidosis; J98.11 Atelectasis; E11.65 Type 2 diabetes mellitus with hyperglycemia; E78.5 Hyperlipidemia, unspecified; E86.9 Volume depletion, unspecified; F03.90 Unspecified dementia, unspecified severity, without behavioral disturbance, psychotic disturbance, mood disturbance, and anxiety; F32.9 Major depressive disorder, single episode, unspecified; G20 Parkinson's disease; G40.909 Epilepsy, unspecified, not intractable, without status epilepticus; I25.10 Atherosclerotic heart disease of native coronary artery without angina pectoris; I25.2 Old myocardial infarction; I70.0 Atherosclerosis of aorta; Z79.82 Long term (current) use of aspirin; Z87.01 Personal history of pneumonia (recurrent); Z93.1 Gastrostomy status; R13.10 Dysphagia, unspecified
CPT/HCPCS: 36415; 71010-TC; 76770-TC; 80048-TC; 80053-TC; 80076-TC; 81000-TC; 82962-TC; 83605-TC; 83735-TC; 84100-TC; 84484-TC; 85025-TC; 85730-TC; 87040-TC; 87081-TC; 87086-TC; A4606; A6248; A6402; J1644; J1815; J2543; J3475; J3490; J7030; J7040; J7060; Z7610

== ENCOUNTER 2017-09-12 19:04 | Inpatient (IN) | payer MEDICARE, OTHER ==
[~2017-09-12] VITALS: Ht 162.6 cm; Wt 54.0 kg
[~2017-09-12 19:04] MED LIST: ACET-868 PO; ALLA266C2 TP; ASPI325T2 PO; DOCU-25 GT; INSU100I19 SQ; INSU3INS9 SQ; MULT-331 GT; NA P133E RC; NUTR100037 GT
--- NOTE | 2017-09-12 19:06 | NUR ---
BIB RA D/T TACHYCARDIA, HOT TO TOUCH. PATIENT A/OX 1. TACHYPNIC, ON NON-REBREATHER MASK, CORE TEMP 106.2, COOLING MEASURES IMMEDIATELY STARTED. IV INTACT ON LEFT WRIST, 20 G, GT INTACT. SAFETY AND COMFORT MEASURES IN PLACE. MD AT BEDSIDE FOR EVAL.
--- NOTE | 2017-09-12 19:07 | NUR ---
COOLING MEASURES RENDERED.
--- NOTE | 2017-09-12 19:08 | NUR ---
PT NOTED WITH GTUBE, INTACT AND PATENT. NO RESIUDALS NOTED. NO S/S INFECTION NOTED.
[2017-09-12] MEDS ORDERED: PIPERACILLIN /TAZOBACTAM 3.375 G VIAL IV ONE (19:13)
[2017-09-12] MEDS ORDERED: ACETAMINOPHEN 650 MG/20.3 ML UDC ONE (19:14)
[2017-09-12] MEDS ORDERED: DILTIAZEM HCL 25 MG IV ONE (19:14)
--- NOTE | 2017-09-12 19:15 | NUR ---
THIGH AND SACRAL EXCORIATION NOTED. PLACED 16FR VASQUEZ PER MD ORDER. URINE COLLECTED. SENT TO LAB
[2017-09-12] MEDS ORDERED: INSU100I19 SQ (19:22)
[2017-09-12] MEDS ORDERED: FERR220S2 GT (19:22)
[2017-09-12] MEDS ORDERED: METF500T4 GT (19:22)
[2017-09-12] MEDS ORDERED: INSU100I4 SQ (19:22)
[2017-09-12] MEDS ORDERED: POTA20TA83 GT (19:22)
[2017-09-12] MEDS ORDERED: ACETAMINOPHEN SUSP 80 MG/0.8 ML BOTTLE GT ONE (19:30)
[2017-09-12] MEDS ORDERED: PIPERACILLIN /TAZOBACTAM 3.375 G in IV D5W 50 ML IV ONE (19:30)
[2017-09-12] MEDS ORDERED: IV NS 0.9% 1,000 ML BAG IV ONE (19:30)
[2017-09-12] MEDS ORDERED: DILTIAZEM HCL 25 MG IV IV ONE (19:30)
[2017-09-12 19:33] LABS: BASOPHILS # (AUTO) 0.1 /CMM (0.0-0.2); BASOPHILS % (AUTO) 1.1 % (0.0-2.0); EOSINOPHILS % (AUTO) 0.1 % (0.0-6.0); HEMATOCRIT 49 % (33-45); HEMOGLOBIN 15.5 g/dL (11.5-14.8); LYMPHOCYTES # (AUTO) 3.4 /CMM (0.8-4.8); LYMPHOCYTES % (AUTO) 26.5 % (20.0-44.0); MEAN CORPUSCULAR HEMOGLOBIN 31 PG (26.0-33.0); MEAN CORPUSCULAR HGB CONC 32 g/dl (31.0-36.0); MEAN CORPUSCULAR VOLUME 97 fL (82-100); MONOCYTES # (AUTO) 0.7 /CMM (0.1-1.30); MONOCYTES % (AUTO) 5.8 % (2.0-12.0); NEUTROPHILS # (AUTO) 8.6 /CMM (1.8-8.9); NEUTROPHILS % (AUTO) 66.5 % (43.0-81.0); PLATELET COUNT (AUTO) 405 /CMM (150-450); RDW COEFFICIENT OF VARIATION 13.9 (11.5-15.0); RED BLOOD CELL COUNT(AUTO) 5.02 MIL/uL (4.0-5.2); WHITE BLOOD COUNT (AUTO) 12.8 K/uL (4.3-11.0)
[2017-09-12 19:41] LABS: APPEARANCE,URINE Slightly Cloudy (CLEAR); BILIRUBIN,URINE Negative (NEGATIVE); BLOOD, URINE Large Ery/uL (NEGATIVE); COLOR,URINE Yellow (YELLOW); KETONES,URINE Trace (NEGATIVE); LEUKOCYTE ESTERASE ,URINE Small (NEGATIVE); NITRITE, URINE Negative (NEGATIVE); PH,URINE 5.5 (5.0-8.0); PROTEIN,URINE >=300 mg/dl (NEGATIVE); UGLUCOSE 100 MG/DL mg/dL (NEGATIVE); UROBILINOGEN,URINE 0.2 EU/dL (0.2)
[2017-09-12 19:51] LABS: TROPONIN I 0.044 ng/mL (0.00-0.056)
[2017-09-12 19:54] LABS: BACTERIA,URINE Many /HPF (None Seen); RBC,URINE TOO NUMEROUS TO COUN /HPF (0-2); SQUAMOUS EPITHELIAL CELL,UR Few /HPF (None Seen); WBC,URINE TOO NUMEROUS TO COUN /HPF (0-3)
[2017-09-12 19:55] LABS: URINE AMORPHOUS URATE Moderate /HPF (None Seen)
[2017-09-12 19:56] LABS: ALANINE AMINOTRANSFERASE 42 U/L (12-78); ALBUMIN 3.1 g/dL (3.4-5.0); ALKALINE PHOSPHATASE 68 U/L (46-116); ASPARTATE AMINOTRANSFERASE 28 U/L (15-37); B-TYPE NATRIURETIC PEPTIDE 603 PG/ML (0-125); BILIRUBIN,DIRECT 0.1 mg/dL (0.0-0.2); BILIRUBIN,TOTAL 0.3 mg/dL (0.2-1.0); CALCIUM, SERUM 9.7 mg/dL (8.5-10.1); CARBON DIOXIDE 16 mmol/L (21-32); CHLORIDE 106 mmol/L (98-107); CREATININE 2.3 mg/dL (0.6-1.3); POTASSIUM 4.7 mmol/L (3.5-5.1); SODIUM SERUM 144 mmol/L (136-145); TOTAL PROTEIN, SERUM 9.1 g/dL (6.4-8.2); UREA NITROGEN, BLOOD 62 mg/dL (7-18)
[2017-09-12 19:57] LABS: ABG BASE EXCESS -12.3 mmol/L; ABG OXYGEN SATURATION 98.8 % (92.0-98.5); ABG PCO2 17.7 mmHg (35.0-45.0); ABG PH 7.383 (7.350-7.450); ABG PO2 215.4 mmHg (75.0-100.0); AaDO2 336.4 mmHg; COHb 0.3 % (0.5-1.5); MetHb 0.5 % (0.0-1.5); SITE, ABG Right Radial
[2017-09-12 19:59] LABS: GLUCOSE 543 mg/dL (74-106)
--- NOTE | 2017-09-12 20:14 | NUR ---
ICU 250
[2017-09-12] MEDS ORDERED: INSULIN REGULAR, HUMAN 100 UNIT/ML 10 ML VIAL ONE ×2 (20:17→21:49)
[2017-09-12] MEDS ORDERED: INSULIN REGULAR, HUMAN 100 UNIT/ML 10 ML VIAL SQ ONE (20:30)
--- NOTE | 2017-09-12 20:49 | NUR ---
RADIOLOGY AT BEDSIDE FOR CRX
--- NOTE | 2017-09-12 21:14 | NUR ---
RECTAL TEMP 99. DR. STILL MADE AWARE
--- NOTE | 2017-09-12 21:28 | NUR ---
SPOKE TO CIRA FROM LAB, PTT TO BE REDRAWN. LAB AT BEDSIDE FOR LACTIC REDRAW.
--- NOTE | 2017-09-12 21:35 | NUR ---
CALLED [facility], OUTSOLE LEVELER WAS PAGED.
--- NOTE | 2017-09-12 21:40 | NUR ---
LAB AT BEDSIDE FOR LACTIC REDRAW.
--- NOTE | 2017-09-12 21:43 | NUR ---
REPORT GIVEN TO THEA FOR ICU BED 250
[2017-09-12 21:58] LABS: INR 1.59 (0.87-1.13); PROTHROMBIN TIME 16.6 SECS (9.5-12.7)
[2017-09-12] MEDS ORDERED: INSULIN REGULAR, HUMAN 100 UNIT in IV NS 0.9% 99 ML IV PRN ×2 (22:00)
[2017-09-12 22:10] VITALS: BP 100/73
--- NOTE | 2017-09-12 22:10 | NUR ---
PT TRANSFERRED TO ICU PER ACLS PROTOCOL.
[2017-09-12] MEDS ORDERED: IV NS 0.9% 1,000 ML BAG IV PRN (22:30)
[2017-09-12] MEDS: IV NS 0.9% 1,000 ML IV PRN (22:57)
[2017-09-12 23:00] VITALS: BP 89/43
--- NOTE | 2017-09-12 23:00 | NUR ---
CUPOLA TAPPER - NOTES - PT ADMITTED FROM ER FOR SEPSIS, LACTIC ACID 10.1, IN ER PT HAD TEMP 106.2 RECTAL, TACHYCARDIC 160S, SOB. PT IS NON VERBAL, OPENS EYES, DOES NOT FOLLOW COMMANDS, PT BLE ARE CONTRACTED, BUE RIGID. PT IS IN SINUS TACH, 120S-110S, BP IS MARGINAL 90S. PT IS ON 6L SIMPLE MASK, LUNG SOUNDS RHONCHI, RR 26. PT HAS PEG TUBE, INTACT, PATENT, CLAMPED, NPO. PT HAS VASQUEZ CATHETER, DRAINING CLOUDY YELLOW URINE. PT HAS MULTIPLE SKIN ISSUES NOTED. PT HAS R AC 18G IV, L AC 20G IV, AND L WRIST 22G IV. PT TURNED AND REPOSITIONED FOR COMFORT, TEMP 97.7 AX WILL CONTINUE TO MONITOR.
--- NOTE | 2017-09-12 23:05 | NUR ---
PT IS ON INSULIN DRIP, BLOOD GLUCOSE 456, PER ZACK MOSQUERA NP, PT WILL BE ON BLOOD GLUCOSE X 2 DIVIDED BY 100 TO DETERMINE UNITS PER HOUR.
[2017-09-12] MEDS ORDERED: MEROPENEM 500 MG VIAL IV ONE (23:14)
[2017-09-12] MEDS: MEROPENEM 500 MG in IV NS 0.9% 50 ML IV SCH (23:23)
[2017-09-12] MEDS ORDERED: Z GUARD REMEDY 2 OZ OINT TP PRN (23:30)
[2017-09-12] MEDS ORDERED: ONDANSETRON HCL/PF 4 MG/2 ML VIAL IVP PRN (23:30)
[2017-09-12] MEDS ORDERED: ZOLPIDEM TARTRATE 5 MG TABLET PO PRN (23:30)
--- NOTE | 2017-09-12 23:50 | NUR ---
ZENIA MOSQUERA MADE AWARE TO COMPLETE CARDIOPULMONARY ASSESSMENT FOR SEPSIS, AFTER FLUID RESUSCITATION
[2017-09-13] VITALS (79 sets, daily range): BP systolic 80–178; BP diastolic 15–95
[2017-09-13] MEDS ORDERED: ALBUTEROL FS 2.5 MG/0.5 ML VIAL.NEB NEB PRN
[2017-09-13] MEDS ORDERED: IPRATROPIUM NEB FS 0.5 MG/2.5 ML AMPUL.NEB NEB PRN
--- NOTE | 2017-09-13 00:02 | NUR ---
PT PLACED ON 2L NC, O2SAT > 98%
[2017-09-13] MEDS ORDERED: PHENYLEPHRINE 10 MG/ML VIAL ONE (00:21)
[2017-09-13] MEDS: BLOOD SUGAR DIAGNOSTIC 1 EACH STRIP IN SCH ×18 (00:21→23:58)
[2017-09-13] MEDS ORDERED: PHENYLEPHRINE 80 MG in IV NS 0.9% 250 ML IV PRN (00:30)
[2017-09-13 00:43] LABS: BASOPHILS % (AUTO) 0.2 % (0.0-2.0); EOSINOPHILS % (AUTO) 0.1 % (0.0-6.0); HEMATOCRIT 40 % (33-45); HEMOGLOBIN 12.7 g/dL (11.5-14.8); LYMPHOCYTES # (AUTO) 2.1 /CMM (0.8-4.8); LYMPHOCYTES % (AUTO) 22.8 % (20.0-44.0); MEAN CORPUSCULAR HEMOGLOBIN 31 PG (26.0-33.0); MEAN CORPUSCULAR HGB CONC 32 g/dl (31.0-36.0); MEAN CORPUSCULAR VOLUME 96 fL (82-100); MONOCYTES # (AUTO) 0.6 /CMM (0.1-1.30); MONOCYTES % (AUTO) 6.4 % (2.0-12.0); NEUTROPHILS # (AUTO) 6.5 /CMM (1.8-8.9); NEUTROPHILS % (AUTO) 70.5 % (43.0-81.0); PLATELET COUNT (AUTO) 241 /CMM (150-450); RDW COEFFICIENT OF VARIATION 15.1 (11.5-15.0); RED BLOOD CELL COUNT(AUTO) 4.16 MIL/uL (4.0-5.2); WHITE BLOOD COUNT (AUTO) 9.3 K/uL (4.3-11.0)
[2017-09-13 01:05] LABS: CALCIUM, SERUM 7.2 mg/dL (8.5-10.1); CARBON DIOXIDE 13 mmol/L (21-32); CHLORIDE 117 mmol/L (98-107); CREATININE 1.8 mg/dL (0.6-1.3); POTASSIUM 4.2 mmol/L (3.5-5.1); SODIUM SERUM 152 mmol/L (136-145); UREA NITROGEN, BLOOD 53 mg/dL (7-18)
[2017-09-13 01:09] LABS: GLUCOSE 544 mg/dL (74-106)
--- NOTE | 2017-09-13 01:30 | NUR ---
CRITICAL LAB VALUES NOTED. LACTIC ACID 8.5, GLUCOSE 544, GOLD TOOLER ZACK MOSQUERA NOTIFIED, NO NEW ORDERS, PT ON INSULIN DRIP
[2017-09-13 01:41] LABS: BAND % (MANUAL) 22 % (0.0-5.0); LYMPHOCYTES % (MANUAL) 29 % (16-48); MONOCYTES % (MANUAL) 8 % (0-11.0); NEUTROPHILS % (MANUAL) 40 (42-76); REACTIVE LYMPHOCYTES 1 % (0-0)
--- NOTE | 2017-09-13 02:00 | NUR ---
MULTIPLE ATTEMPTS TO CALL FAMILY TO OBTAIN CONSENT FOR PICC LINE, FAMILY DID NOT ANSWER PHONE CALL, I LEFT A MESSAGE, ZENIA MOSQUERA AWARE, PICC LINE MEDICALLY NECESSARY FOR EMERGENCY, 2 DOCTORS WILL SIGN CONSENT
--- NOTE | 2017-09-13 02:49 | NUR ---
SISTER BRIAN CALLED, SHE GAVE CONSENT TO PLACE PICC LINE, WITNESSED WITH MALIA HECK RN, CONSENT PLACED IN CHART
[2017-09-13] MEDS ORDERED: VANCOMYCIN 1 GM VIAL ONE (03:42)
[2017-09-13] MEDS ORDERED: VANCOMYCIN 1 GM in IV D5W 250 ML IV STA (03:45)
[2017-09-13] MEDS ORDERED: VANCOMYCIN 1 GM in IV D5W 250 ML IV SCH (04:00)
[2017-09-13] MEDS ORDERED: MEROPENEM 500 MG VIAL IV ONE (04:39)
[2017-09-13] MEDS: MEROPENEM 500 MG in IV NS 0.9% 50 ML IV SCH ×2 (04:40→15:52)
[2017-09-13 04:55] LABS: BASOPHILS % (AUTO) 0.2 % (0.0-2.0); EOSINOPHILS % (AUTO) 0.1 % (0.0-6.0); HEMATOCRIT 34 % (33-45); HEMOGLOBIN 10.9 g/dL (11.5-14.8); LYMPHOCYTES # (AUTO) 2.2 /CMM (0.8-4.8); MEAN CORPUSCULAR HEMOGLOBIN 30 PG (26.0-33.0); MEAN CORPUSCULAR HGB CONC 32 g/dl (31.0-36.0); MEAN CORPUSCULAR VOLUME 95 fL (82-100); MONOCYTES # (AUTO) 0.4 /CMM (0.1-1.30); MONOCYTES % (AUTO) 5.6 % (2.0-12.0); NEUTROPHILS # (AUTO) 4.1 /CMM (1.8-8.9); NEUTROPHILS % (AUTO) 61.1 % (43.0-81.0); PLATELET COUNT (AUTO) 226 /CMM (150-450); RDW COEFFICIENT OF VARIATION 15.3 (11.5-15.0); RED BLOOD CELL COUNT(AUTO) 3.59 MIL/uL (4.0-5.2); WHITE BLOOD COUNT (AUTO) 6.6 K/uL (4.3-11.0)
[2017-09-13 05:04] LABS: CARBON DIOXIDE 13 mmol/L (21-32); CHLORIDE 119 mmol/L (98-107); CREATININE 1.5 mg/dL (0.6-1.3); GLUCOSE 252 mg/dL (74-106); MAGNESIUM 1.8 mg/dL (1.8-2.4); PHOSPHORUS 1.7 mg/dL (2.5-4.9); POTASSIUM 3.3 mmol/L (3.5-5.1); SODIUM SERUM 151 mmol/L (136-145); UREA NITROGEN, BLOOD 48 mg/dL (7-18)
[2017-09-13 05:05] LABS: CHOLESTEROL 79 mg/dL (<200); HDL CHOLESTEROL 18 mg/dL (40-60); LDL 41 mg/dL (0-99); TRIGLYCERIDES 194 mg/dL (30-150)
[2017-09-13] MEDS: IV NS 0.9% 1,000 ML IV PRN (06:34)
--- NOTE | 2017-09-13 07:30 | NUR ---
PRODUCTION OPERATIONS INSPECTOR RECEIVED PATIENT AWAKE, OPENS EYES TO PAIN ON 2 LITERS NASAL CANNULA SATURATION 99% AFEBRILE BUT WARM TO TOUCH ON INSULIN AND NEOSYNEPHRINE DRIP MONITORED ACCURATELY VASQUEZ CATHETER DRAINING TO YELLOWISH URINE WOUND CARE DONE, WOUND CARE NURSE SAW PATIENT WITH NEW ORDERS MADE AND CARRIED OUT
[2017-09-13 08:28] LABS: CARBON DIOXIDE 16 mmol/L (21-32); CHLORIDE 119 mmol/L (98-107); CREATININE 1.2 mg/dL (0.6-1.3); GLUCOSE 184 mg/dL (74-106); POTASSIUM 3.3 mmol/L (3.5-5.1); SODIUM SERUM 150 mmol/L (136-145); UREA NITROGEN, BLOOD 42 mg/dL (7-18)
[2017-09-13] MEDS ORDERED: FEE PK DOSING 1 MIN EA MC ONE (08:49)
[2017-09-13 08:50] LABS: ABG BASE EXCESS -9.5 mmol/L; ABG OXYGEN SATURATION 96.6 % (92.0-98.5); ABG PCO2 26.7 mmHg (35.0-45.0); ABG PH 7.354 (7.350-7.450); ABG PO2 89.3 mmHg (75.0-100.0); AaDO2 136.4 mmHg; COHb 0.3 % (0.5-1.5); MetHb 0.4 % (0.0-1.5); O2Hb 95.9 % (94.0-97.0); SITE, ABG Right Radial; VENT MODE, BG NASAL CANNULA
[2017-09-13] MEDS ORDERED: INSULIN REGULAR, HUMAN 100 UNIT in IV NS 0.9% 99 ML IV PRN ×2 (09:00)
--- NOTE | 2017-09-13 09:19 | NUR ---
WOUND CARE CONSULT: PT PRESENTS WITH MULTIPLE SKIN ISSUES INCLUDING STAGE 2 ULCERS TO SACRUM AND BILATERAL BUTTOCKS, ESCHAR/SCAB TO LEFT EYEBROW AND LEFT KNEE, SCARRING TO HEELS AND SEVERE RASH WITH EXCORIATION TO PERINEUM, INNER THIGHS, BUTTOCKS, LEFT OUTER BUTTOCK, PRESENT ON ADMISSION. ALL SKIN PROTECTION AND WOUND RECOMMENDATIONS DISCUSSED WITH NURSING STAFF. PT ON FIRST STEP MATTRESS. PT NOTED TO HAVE SEVERE LOWER EXTREMITY CONTRACTURES. PT IS IMMOBILE AND INCONTINENT OF LOOSE STOOL. CURRENT ORALIA SCORE IS 8. WILL SEE PRN. BALDWIN IN AGREEMENT WITH PLAN OF CARE. Addendum: 09/13/17 at 0921 by NADEEM TEJADA WNDNU Amended: Links added.
[2017-09-13] MEDS ORDERED: HYDROGEL DRESSING 90 GM TUBE TP PRN (09:30)
[2017-09-13] MEDS: HEPARIN SODIUM, PORCINE 5000 UNITS/1 ML VIAL SQ SCH ×2 (09:55→20:48)
[2017-09-13] MEDS: POTASSIUM CL. PREMIX PERIPHER. 50 ML IV SCH ×2 (09:58→11:03)
--- NOTE | 2017-09-13 10:56 | NUR ---
EFRAIN contacted pt's sister Arminda who is pt's DPOA. Arminda informed EFRAIN that pt. was residing for 3 months at [facility] and reh and was discharged home last . Pt. was admitted to [facility] from home. Pt. is cared at home by her sister Alisa who is her 20/06 caregiver. Arminda informed EFRAIN that once a month a wound doctor comes to the home to see the pt. EFRAIN requested for Arminda to bring copy of DPOA documentation for the pt's chart and to give it to SPARK PLUG TESTER when she arrives later today. EFRAIN followed up with ICU ALIX Reed with the aforementioned information.
[2017-09-13] MEDS: CLOTRIMAZOLE 1% 15 GM TUBE TP SCH ×2 (10:58→17:33)
[2017-09-13] MEDS: HYDROGEL DRESSING 90 GM TUBE TP SCH (10:58)
[2017-09-13] MEDS ORDERED: IV 1/2NS 1000 ML 1,000 ML IV SCH (11:30)
[2017-09-13] MEDS ORDERED: IV NS 0.9% 1,000 ML IV PRN (12:00)
[2017-09-13] MEDS ORDERED: IV 1/2NS 1000 ML 1,000 ML IV PRN (12:30)
[2017-09-13 13:52] LABS: ABG BASE EXCESS -8.1 mmol/L; ABG OXYGEN SATURATION 94.8 % (92.0-98.5); ABG PCO2 25.8 mmHg (35.0-45.0); ABG PH 7.393 (7.350-7.450); ABG PO2 73.9 mmHg (75.0-100.0); AaDO2 152.9 mmHg; COHb 0.3 % (0.5-1.5); MetHb 0.5 % (0.0-1.5); SITE, ABG Right Radial; VENT MODE, BG NASAL CANNULA
[2017-09-13] MEDS: IV D5/0.45 NACL 1,000 ML IV PRN (14:10)
[2017-09-13] MEDS ORDERED: VANCOMYCIN 1.25 GM in IV D5W 500 ML IV SCH (14:30)
[2017-09-13] MEDS: INSULIN DETEMIR 100 UNIT/ML CARTRIDGE SQ SCH (15:18)
[2017-09-13] MEDS ORDERED: DEXTROSE 50%-WATER 50 ML DISP.SYRIN IV PRN (16:00)
[2017-09-13] MEDS ORDERED: K PHOS NEUTRAL 250 MG TABLET PO ONE (16:30)
[2017-09-13 18:38] LABS: CALCIUM, SERUM 6.7 mg/dL (8.5-10.1); CARBON DIOXIDE 19 mmol/L (21-32); CHLORIDE 120 mmol/L (98-107); POTASSIUM 3.5 mmol/L (3.5-5.1); SODIUM SERUM 147 mmol/L (136-145); UREA NITROGEN, BLOOD 26 mg/dL (7-18)
[2017-09-13 18:42] LABS: GLUCOSE 395 mg/dL (74-106)
--- NOTE | 2017-09-13 20:00 | NUR ---
COATING AND EMBOSSING UNIT OPERATOR - NOTES - PT IS NON VERBAL, OPENS EYES, DOES NOT FOLLOW COMMANDS, PT BLE ARE CONTRACTED. PT IS IN SINUS TACH, 110S-120S, BP 120S. PT IS ON 4L NASAL CANNULA, LUNG SOUNDS RHONCHI. PT HAS PEG TUBE, INTACT, PATENT, CLAMPED, NPO. PT HAS VASQUEZ CATHETER, DRAINING YELLOW URINE. PT HAS MULTIPLE SKIN ISSUES NOTED. PT HAS JENNIFER PICC LINE, R AC 18G IV, L AC 20G IV, AND L WRIST 22G IV. PT TURNED AND REPOSITIONED FOR COMFORT, TEMP 102.1 AX, TEMP ON FLOOR VERY WARM, WILL TRY TO COOL DOWN, COOLING MEASURES IMPLEMENTED. WILL CONTINUE TO MONITOR.
--- NOTE | 2017-09-13 21:30 | NUR ---
PT HAD TEMP 102.1 AXILLARY, THE ROOM AND THE ENTIRE ICU UNIT TEMP IS HOT, PT UNCOVERED, AND COOLING MEASURES IMPLEMENTED
--- NOTE | 2017-09-13 21:48 | NUR ---
LAB CALLED, BLOOD CULTURE POSITIVE FOR GRAM POSITIVE COCCI IN CLUSTERS, PT ON ABX VANCO AND MERREM, PROTOCOL FOLLOWED
[2017-09-13] MEDS: ACETAMINOPHEN 325 MG TABLET PO PRN (21:51)
[2017-09-13 23:28] LABS: CALCIUM, SERUM 6.6 mg/dL (8.5-10.1); CARBON DIOXIDE 17 mmol/L (21-32); CHLORIDE 119 mmol/L (98-107); GLUCOSE 170 mg/dL (74-106); POTASSIUM 3.3 mmol/L (3.5-5.1); SODIUM SERUM 149 mmol/L (136-145); UREA NITROGEN, BLOOD 23 mg/dL (7-18)
[2017-09-13] MEDS: INSULIN REGULAR, HUMAN 100 UNIT/ML 3 ML VIAL SQ PRN (23:58)
[2017-09-14] VITALS (54 sets, daily range): BP systolic 103–159; BP diastolic 29–96
[2017-09-14] MEDS ORDERED: VANCOMYCIN 1 GM VIAL ONE (00:07)
[2017-09-14] MEDS: VANCOMYCIN 0.75 GM in IV D5W 250 ML IV SCH ×2 (00:09→17:12)
[2017-09-14] MEDS: IV D5/0.45 NACL 1,000 ML IV PRN ×3 (01:55→22:32)
--- NOTE | 2017-09-14 04:00 | NUR ---
pt given full bed bath, all linens changed, all dressings changed, wound tx done per order, oral care done, pt looks more comfortable, hr decreased. will continue to monitor
[2017-09-14] MEDS: MEROPENEM 500 MG in IV NS 0.9% 50 ML IV SCH ×2 (04:24→16:12)
[2017-09-14 04:26] LABS: BASOPHILS % (AUTO) 0.1 % (0.0-2.0); EOSINOPHILS # (AUTO) 0.3 /CMM (0.0-0.7); EOSINOPHILS % (AUTO) 3.6 % (0.0-6.0); HEMATOCRIT 31 % (33-45); HEMOGLOBIN 10.1 g/dL (11.5-14.8); LYMPHOCYTES # (AUTO) 2.1 /CMM (0.8-4.8); LYMPHOCYTES % (AUTO) 24.5 % (20.0-44.0); MEAN CORPUSCULAR HEMOGLOBIN 31 PG (26.0-33.0); MEAN CORPUSCULAR HGB CONC 32 g/dl (31.0-36.0); MEAN CORPUSCULAR VOLUME 95 fL (82-100); MONOCYTES # (AUTO) 0.3 /CMM (0.1-1.30); MONOCYTES % (AUTO) 3.1 % (2.0-12.0); NEUTROPHILS # (AUTO) 5.9 /CMM (1.8-8.9); NEUTROPHILS % (AUTO) 68.7 % (43.0-81.0); PLATELET COUNT (AUTO) 198 /CMM (150-450); RDW COEFFICIENT OF VARIATION 15.1 (11.5-15.0); RED BLOOD CELL COUNT(AUTO) 3.29 MIL/uL (4.0-5.2); WHITE BLOOD COUNT (AUTO) 8.6 K/uL (4.3-11.0)
[2017-09-14 04:45] LABS: CALCIUM, SERUM 6.7 mg/dL (8.5-10.1); CARBON DIOXIDE 21 mmol/L (21-32); CHLORIDE 116 mmol/L (98-107); CREATININE 0.9 mg/dL (0.6-1.3); GLUCOSE 201 mg/dL (74-106); MAGNESIUM 1.6 mg/dL (1.8-2.4); PHOSPHORUS 1.5 mg/dL (2.5-4.9); POTASSIUM 3.2 mmol/L (3.5-5.1); SODIUM SERUM 146 mmol/L (136-145); UREA NITROGEN, BLOOD 20 mg/dL (7-18)
[2017-09-14] MEDS: BLOOD SUGAR DIAGNOSTIC 1 EACH STRIP IN SCH ×4 (05:18→23:27)
[2017-09-14] MEDS: INSULIN REGULAR, HUMAN 100 UNIT/ML 3 ML VIAL SQ PRN ×3 (05:27→17:21)
[2017-09-14 05:48] LABS: BAND % (MANUAL) 20 % (0.0-5.0); EOSINOPHILS % (MANUAL) 6 % (0-4); LYMPHOCYTES % (MANUAL) 31 % (16-48); MONOCYTES % (MANUAL) 1 % (0-11.0); NEUTROPHILS % (MANUAL) 42 (42-76)
[2017-09-14] MEDS ORDERED: VANCOMYCIN 1 GM in IV D5W 250 ML IV SCH (06:00)
--- NOTE | 2017-09-14 07:05 | NUR ---
RN INITIAL NOTES RECEIVED PT AWAKE, NON-VERBAL. ON 02 AT 4LPM VIA NC. HOB ELEVATED. NO RESPIRATORY DISTRESS NOTED. NO SIGNS OF PAIN NOTED. JENNIFER PICC LINE IN PLACE. IV LINES IN PLACE. GT IN PLACE, CLAMPED. FC IN PLACE. PT CLEAN AND DRY. BLE ELEVATED. WILL MONITOR.
[2017-09-14] MEDS: CLOTRIMAZOLE 1% 15 GM TUBE TP SCH ×2 (08:08→16:12)
[2017-09-14] MEDS: HYDROGEL DRESSING 90 GM TUBE TP SCH (08:08)
[2017-09-14] MEDS: HEPARIN SODIUM, PORCINE 5000 UNITS/1 ML VIAL SQ SCH ×2 (08:12→21:05)
[2017-09-14] MEDS: INSULIN DETEMIR 100 UNIT/ML CARTRIDGE SQ SCH ×2 (08:12→21:06)
[2017-09-14 08:24] LABS: CALCIUM, SERUM 6.5 mg/dL (8.5-10.1); CARBON DIOXIDE 19 mmol/L (21-32); CHLORIDE 114 mmol/L (98-107); CREATININE 0.9 mg/dL (0.6-1.3); GLUCOSE 226 mg/dL (74-106); POTASSIUM 3.3 mmol/L (3.5-5.1); SODIUM SERUM 145 mmol/L (136-145); UREA NITROGEN, BLOOD 16 mg/dL (7-18)
--- NOTE | 2017-09-14 10:00 | NUR ---
RN NOTES SEEN AND EXAMINED BY DR. COREA. PT ON VIA NC AT 4LPM. NO RESPIRATORY DISTRESS NOTED. NO SOB NOTED. NO SIGNS OF PAIN NOTED. PT OFF PRESSORS AND INSULIN DRIP. REMAINS NPO. ON IVF. AWARE OF LAB VALUES. NO ORDER MADE.
[2017-09-14] MEDS: POTASSIUM CL. PREMIX PERIPHER. 50 ML IV SCH ×2 (11:13→12:19)
[2017-09-14] MEDS: Magnesium 1GM/D5W 100ML PREMIX 100 ML IV SCH ×4 (11:13→14:54)
[2017-09-14] MEDS ORDERED: Calcium Gluconate 1GM/10ML 4.65 MEQ in IV D5W 50 ML IV ONE (12:30)
--- NOTE | 2017-09-14 13:30 | NUR ---
RN NOTES SEEN AND EXAMINED BY DR. ACUNA. AWARE OF CURRENT LAB VALUES: MG 1.6, REPLACED. POTASSIUM 3.2 AND 3.3, REPLACED. PT OFF PRESSOR AND INSULIN DRIP YESTERDAY. PT AFEBRILE. PER , ADD 2 MORE BAGS OF MG. LABS IN AM. NOTED AND CARRIED OUT. Addendum: 09/14/17 at 1338 by DRU YU RN MD ALSO ADDED TO DC STOOL FOR C-DIFF IF PT HAS NO MORE DIARRHEA.
[2017-09-14 15:20] LABS: CALCIUM, SERUM 7.3 mg/dL (8.5-10.1); CARBON DIOXIDE 21 mmol/L (21-32); CHLORIDE 109 mmol/L (98-107); CREATININE 0.8 mg/dL (0.6-1.3); GLUCOSE 205 mg/dL (74-106); POTASSIUM 3.6 mmol/L (3.5-5.1); SODIUM SERUM 140 mmol/L (136-145); UREA NITROGEN, BLOOD 11 mg/dL (7-18)
[2017-09-14] MEDS: LACTOBACILLUS RHAMNOSUS GG 1 EACH CAP.SPRINK PO SCH (16:12)
[2017-09-14] MEDS: HYDROCODONE/APAP 5/325MG 1 EACH TABLET PO PRN ×2 (16:17→23:06)
--- NOTE | 2017-09-14 16:24 | NUR ---
RN NOTES PT GIVEN ICE CHIPS, TOLERATED WELL. TRIED APPLE SAUCE TO BE MIXED WITH ZOVIRAX. PT SPAT OUT THE APPLE SAUCE. PT AGITATED, KICKING STAFF. UNABLE TO GIVE ZOVIRAX. AWARE. WILL CONTINUE TO MONITOR. Addendum: 09/14/17 at 1831 by [address]U YU RN DISREGARD NOTES. ERROR IN DOCUMENTATION. WRONG PT.
[2017-09-14] MEDS ORDERED: NEUTRA PHOS 1 POWD.PACKET NG ONE (18:30)
--- NOTE | 2017-09-14 18:34 | NUR ---
RN CLOSING NOTES NO SIGNIFICANT CHANGE NOTED. NO CHANGE IN LOC NOTED. REMAINS STABLE. REMAINS ON 02 AT 4LPM VIA NC. KEPT HOB ELEVATED. NO SOB NOTED. KEPT COMFORTABLE. TOLERATING IVF WELL. IV LINES IN PLACE. GT INTACT. FC IN PLACE. TX PROVIDED ORDERED. KEPT CLEAN AND DRY. REPOSITIONED Q2. BLE ELEVATED. WILL ENDORSE FOR CONTINUITY OF CARE
--- NOTE | 2017-09-14 20:29 | NUR ---
received pt from day shift, alert, does not follow commands, ST, on 4L 02 sat well, lungs partially congested, no edema, GT clamped, f/c OK output, v/s stable, no pain, pt turned and repositioned.
[2017-09-14 21:04] LABS: CALCIUM, SERUM 6.7 mg/dL (8.5-10.1); CARBON DIOXIDE 20 mmol/L (21-32); CHLORIDE 107 mmol/L (98-107); CREATININE 0.8 mg/dL (0.6-1.3); GLUCOSE 187 mg/dL (74-106); POTASSIUM 3.5 mmol/L (3.5-5.1); SODIUM SERUM 136 mmol/L (136-145); UREA NITROGEN, BLOOD 9 mg/dL (7-18)
[2017-09-15] VITALS (44 sets, daily range): BP systolic 100–162; BP diastolic 54–96
--- NOTE | 2017-09-15 00:15 | NUR ---
pt is resting in the bed, v/s stable, no pain, pt turned and repositioned q2hrs.
[2017-09-15 04:42] LABS: CALCIUM, SERUM 6.9 mg/dL (8.5-10.1); CARBON DIOXIDE 22 mmol/L (21-32); CHLORIDE 109 mmol/L (98-107); CREATININE 0.7 mg/dL (0.6-1.3); GLUCOSE 158 mg/dL (74-106); MAGNESIUM 2.2 mg/dL (1.8-2.4); PHOSPHORUS 1.9 mg/dL (2.5-4.9); POTASSIUM 3.3 mmol/L (3.5-5.1); SODIUM SERUM 138 mmol/L (136-145); UREA NITROGEN, BLOOD 8 mg/dL (7-18)
--- NOTE | 2017-09-15 04:44 | NUR ---
pt is resting in the bed, no acute distress overnight, v/s stable,no pain, pt cleaned, changed and repositioned q2hrs.
[2017-09-15 04:45] LABS: BASOPHILS % (AUTO) 0.1 % (0.0-2.0); EOSINOPHILS # (AUTO) 0.5 /CMM (0.0-0.7); HEMATOCRIT 31 % (33-45); LYMPHOCYTES % (AUTO) 25.4 % (20.0-44.0); MEAN CORPUSCULAR HEMOGLOBIN 31 PG (26.0-33.0); MEAN CORPUSCULAR HGB CONC 33 g/dl (31.0-36.0); MEAN CORPUSCULAR VOLUME 94 fL (82-100); MONOCYTES # (AUTO) 0.3 /CMM (0.1-1.30); MONOCYTES % (AUTO) 3.5 % (2.0-12.0); NEUTROPHILS # (AUTO) 5.2 /CMM (1.8-8.9); PLATELET COUNT (AUTO) 201 /CMM (150-450); RDW COEFFICIENT OF VARIATION 14.5 (11.5-15.0); RED BLOOD CELL COUNT(AUTO) 3.25 MIL/uL (4.0-5.2)
[2017-09-15] MEDS: MEROPENEM 500 MG in IV NS 0.9% 50 ML IV SCH ×2 (04:58→17:43)
[2017-09-15] MEDS: BLOOD SUGAR DIAGNOSTIC 1 EACH STRIP IN SCH ×3 (05:02→17:41)
--- NOTE | 2017-09-15 07:35 | NUR ---
TWISTER HAND RECEIVED PATIENT FROM THE PREVIOUS SHIFT. PATIENT IS IN BED. RESTING COMFORTABLY. NO ACUTE DISTRESS NOTED. ON 4L NC AT THIS TIME. SINUS TACH ON MONITOR. LABS MONITORED. TURNED AND REPOSITIONED FOR COMFORT AND WOUND PREVENTION. WILL CONTINUE TO MONITOR AND PROVIDE CARE.
[2017-09-15] MEDS: HYDROGEL DRESSING 90 GM TUBE TP SCH (08:30)
[2017-09-15] MEDS: CLOTRIMAZOLE 1% 15 GM TUBE TP SCH ×2 (08:31→17:41)
[2017-09-15] MEDS: HYDROCODONE/APAP 5/325MG 1 EACH TABLET PO PRN ×2 (08:34→23:36)
[2017-09-15] MEDS: LACTOBACILLUS RHAMNOSUS GG 1 EACH CAP.SPRINK PO SCH ×2 (08:34→17:43)
[2017-09-15] MEDS: HEPARIN SODIUM, PORCINE 5000 UNITS/1 ML VIAL SQ SCH ×2 (08:35→21:50)
[2017-09-15] MEDS: INSULIN DETEMIR 100 UNIT/ML CARTRIDGE SQ SCH ×2 (08:36→21:51)
[2017-09-15] MEDS: IV D5/0.45 NACL 1,000 ML IV PRN (08:37)
[2017-09-15] MEDS ORDERED: POTASSIUM CHLORIDE 20 MEQ TAB.PRT.SR PO SCH (11:00)
[2017-09-15] MEDS ORDERED: NEUTRA PHOS 1 POWD.PACKET PO ONE (11:00)
[2017-09-15] MEDS ORDERED: POTASSIUM CHLORIDE 20 MEQ POWDER PACKET GT ONE (11:30)
[2017-09-15] MEDS: INSULIN REGULAR, HUMAN 100 UNIT/ML 3 ML VIAL SQ PRN (11:40)
[2017-09-15] MEDS: VANCOMYCIN 0.75 GM in IV D5W 250 ML IV SCH (12:04)
--- NOTE | 2017-09-15 18:10 | NUR ---
PRODUCTION TROUBLESHOOTER PATIENT IS IN BED. RESTING COMFORTABLY. NO ACUTE DISTRESS NOTED. EVEN AND NON LABORED BREATHING PATTERN. FAMILY UPDATED ABOUT PATIENT STATUS. TURNED AND REPOSITIONED FOR COMFORT AND WOUND PREVENTION. WILL CONTINUE TO MONITOR AND PROVIDE CARE.
[2017-09-15] MEDS: GLYTROL 1,000 ML BAG GT PRN (18:55)
[2017-09-16] VITALS (9 sets, daily range): BP systolic 126–155; BP diastolic 64–93
[2017-09-16] MEDS: BLOOD SUGAR DIAGNOSTIC 1 EACH STRIP IN SCH ×3 (00:38→17:53)
[2017-09-16] MEDS: INSULIN REGULAR, HUMAN 100 UNIT/ML 3 ML VIAL SQ PRN ×2 (00:41→12:24)
[2017-09-16] MEDS: INSULIN DETEMIR 100 UNIT/ML CARTRIDGE SQ SCH ×2 (09:36→21:17)
[2017-09-16] MEDS: HEPARIN SODIUM, PORCINE 5000 UNITS/1 ML VIAL SQ SCH ×2 (09:37→21:15)
[2017-09-16] MEDS: HYDROGEL DRESSING 90 GM TUBE TP SCH (09:41)
[2017-09-16] MEDS: LACTOBACILLUS RHAMNOSUS GG 1 EACH CAP.SPRINK PO SCH ×2 (09:41→17:52)
[2017-09-16] MEDS: CLOTRIMAZOLE 1% 15 GM TUBE TP SCH ×2 (09:42→17:53)
--- NOTE | 2017-09-16 09:48 | NUR ---
TD/RN REPORT - TURNOVER CARE REPORT GIVEN TO NURSE BETH TO CONTINUE CARE.
[2017-09-16] MEDS ORDERED: CEFEPIME 1 GM in IV D5W 50 ML IV SCH (10:00)
[2017-09-16] MEDS: CEFEPIME 1 GM in IV D5W 50 ML IV SCH ×2 (12:23→19:31)
[2017-09-16 16:41] LABS: CARBON DIOXIDE 21 mmol/L (21-32); CHLORIDE 109 mmol/L (98-107); POTASSIUM 3.6 mmol/L (3.5-5.1); SODIUM SERUM 140 mmol/L (136-145)
[2017-09-16 16:42] LABS: CREATININE 0.8 mg/dL (0.6-1.3); GLUCOSE 164 mg/dL (74-106); PHOSPHORUS 2.2 mg/dL (2.5-4.9); UREA NITROGEN, BLOOD 10 mg/dL (7-18)
[2017-09-16] MEDS: ACETAMINOPHEN 325 MG TABLET PO PRN (19:24)
[2017-09-16] MEDS: IV D5/0.45 NACL 1,000 ML IV PRN (21:21)
[2017-09-16] MEDS: GLYTROL 1,000 ML BAG GT PRN (21:24)
--- NOTE | 2017-09-16 23:24 | NUR ---
RN:TD: PT RECEIVED IN BED, NONVERBAL SLIGHTLY RESTLESS IN BED. FALL PRECAUTIONS IMPLEMENTED PREVIOUS SHIFT REPORTED THAT THE PT ALMOST FELL OUT OF BED PRIOR TO SHIFT CHANGE. PT NOTED TO BE TACHYCARDIC AND FEBRILE 102.3. TYLENOL AND COOLING MEASURES PERFORMED. TEMP RECHECKED 100. WILL CONTINUE TO MONITOR CLOSELY.
[2017-09-17] VITALS: BP 126/84
--- NOTE | 2017-09-17 00:16 | NUR ---
RN:TD: PT REACHING FOR O2, EKG LEADS, PEG AND PICC LINE. ATTEMPTED LEAST RESTRICTIVE MEASURES TO ENSURE SAFETY BUT PT CONTINUES TO PULL AT ESSENTIAL LINES. ORDERS OBTAINED FOR MITTENS. WILL CONTINUE TO MONITOR CLOSELY.
[2017-09-17] MEDS: BLOOD SUGAR DIAGNOSTIC 1 EACH STRIP IN SCH ×4 (00:22→17:10)
[2017-09-17] MEDS: INSULIN REGULAR, HUMAN 100 UNIT/ML 3 ML VIAL SQ PRN ×3 (00:23→12:04)
[2017-09-17] MEDS: HYDROCODONE/APAP 5/325MG 1 EACH TABLET PO PRN ×2 (00:56→17:06)
[2017-09-17] MEDS: CEFEPIME 1 GM in IV D5W 50 ML IV SCH ×3 (03:36→19:55)
--- NOTE | 2017-09-17 03:58 | NUR ---
RN:TD: PT APPEARS TO BE RESTING MORE COMFORTABLY FOLLOWING [place] ADMIN. WILL CONTINUE TO MONITOR CLOSELY.
[2017-09-17 04:00] VITALS: BP 125/79
[2017-09-17 06:31] LABS: BASOPHILS % (AUTO) 0.2 % (0.0-2.0); EOSINOPHILS # (AUTO) 0.5 /CMM (0.0-0.7); EOSINOPHILS % (AUTO) 8.1 % (0.0-6.0); HEMATOCRIT 29 % (33-45); HEMOGLOBIN 9.8 g/dL (11.5-14.8); LYMPHOCYTES # (AUTO) 1.5 /CMM (0.8-4.8); LYMPHOCYTES % (AUTO) 23.5 % (20.0-44.0); MEAN CORPUSCULAR HEMOGLOBIN 31 PG (26.0-33.0); MEAN CORPUSCULAR HGB CONC 34 g/dl (31.0-36.0); MEAN CORPUSCULAR VOLUME 93 fL (82-100); MONOCYTES # (AUTO) 0.6 /CMM (0.1-1.30); MONOCYTES % (AUTO) 9.5 % (2.0-12.0); NEUTROPHILS # (AUTO) 3.9 /CMM (1.8-8.9); NEUTROPHILS % (AUTO) 58.7 % (43.0-81.0); PLATELET COUNT (AUTO) 236 /CMM (150-450); RDW COEFFICIENT OF VARIATION 14.3 (11.5-15.0); RED BLOOD CELL COUNT(AUTO) 3.13 MIL/uL (4.0-5.2); WHITE BLOOD COUNT (AUTO) 6.6 K/uL (4.3-11.0)
[2017-09-17 07:02] LABS: CALCIUM, SERUM 7.2 mg/dL (8.5-10.1); CARBON DIOXIDE 22 mmol/L (21-32); CHLORIDE 108 mmol/L (98-107); CREATININE 0.7 mg/dL (0.6-1.3); GLUCOSE 171 mg/dL (74-106); MAGNESIUM 2.1 mg/dL (1.8-2.4); PHOSPHORUS 2.5 mg/dL (2.5-4.9); POTASSIUM 3.7 mmol/L (3.5-5.1); SODIUM SERUM 140 mmol/L (136-145); UREA NITROGEN, BLOOD 9 mg/dL (7-18)
[2017-09-17 08:00] VITALS: BP 135/76
--- NOTE | 2017-09-17 08:00 | NUR ---
TD/RN AM SHIFT INITIAL NOTES RECEIVED PT AWAKE IN BED, PT IS OBTUNDED, OPEN EYES, GRUNTS, STARTLES EASILY, RESPONSIVE TO TOUCH, NO GRIMACING NOTED. NO ACUTE CHANGE OF CONDITION NOTED. ON 2L O2 VIA N/C SATURATING @ 98%, LUNG SOUNDS RHONCHI. ON TELE MONITORING WITH SINUS RHYTHM, HR 98. WITH ON GOING IV INFUSION OF D5,1/2NS @ 50CC/HR, PICC LINE NOTED WITH POSITIVE BLOOD RETURN, NO S/S OF INFECTION. ON GOING GTF @ 60CC/HR, NO GASTRIC RESIDUAL NOTED, FLUSHED, PATENT. VASQUEZ CATHETER INTACT NOTED WITH YELLOW URINE OUTPUT. PT IS COMFORTABLE AT THIS TIME. SCHEDULED AM MEDS TO BE GIVEN. CL WITHIN REACHED AND SAFETY MAINTAINED. ON GOING MONITORING.
[2017-09-17] MEDS: HYDROGEL DRESSING 90 GM TUBE TP SCH (08:42)
[2017-09-17] MEDS: LACTOBACILLUS RHAMNOSUS GG 1 EACH CAP.SPRINK PO SCH ×2 (08:42→17:06)
[2017-09-17] MEDS: CLOTRIMAZOLE 1% 15 GM TUBE TP SCH ×2 (08:42→17:07)
[2017-09-17] MEDS: INSULIN DETEMIR 100 UNIT/ML CARTRIDGE SQ SCH ×2 (08:46→21:35)
[2017-09-17] MEDS: HEPARIN SODIUM, PORCINE 5000 UNITS/1 ML VIAL SQ SCH ×2 (08:47→21:29)
[2017-09-17 12:00] VITALS: BP 115/75
--- NOTE | 2017-09-17 12:00 | NUR ---
TELE1/RN NOON ROUNDS NO ACUTE CHANGE OF CONDITION. MONITORING CONTINUED.
--- NOTE | 2017-09-17 15:15 | NUR ---
TELE1/RN ROUNDS - ZENIA QUEZADA. PT SEEN & EXAMINED BY ZENIA QUEZADA, NO NEW ORDERS RECEIVED AT THIS TIME, MONITORING CONTINUED.
[2017-09-17 16:00] VITALS: BP 137/67
--- NOTE | 2017-09-17 19:50 | NUR ---
TELE1/RN AM SHIFT END NOTES ALL NEEDS MET. NO ACUTE CHANGE OF CONDITION NOTED DURING THE SHIFT. PT ENDORSED TO PM NURSE TO CONTINUE CARE. CL WITHIN REACHED AND SAFETY MAINTAINED.
[2017-09-17 20:00] VITALS: BP 123/74
[2017-09-18] VITALS (7 sets, daily range): BP systolic 116–160; BP diastolic 69–108
[2017-09-18] MEDS: INSULIN REGULAR, HUMAN 100 UNIT/ML 3 ML VIAL SQ PRN ×4 (00:06→17:41)
[2017-09-18] MEDS: BLOOD SUGAR DIAGNOSTIC 1 EACH STRIP IN SCH ×4 (00:06→17:36)
[2017-09-18] MEDS: CEFEPIME 1 GM in IV D5W 50 ML IV SCH ×3 (04:29→20:14)
[2017-09-18 06:38] LABS: BASOPHILS % (AUTO) 0.4 % (0.0-2.0); EOSINOPHILS # (AUTO) 0.4 /CMM (0.0-0.7); EOSINOPHILS % (AUTO) 6.2 % (0.0-6.0); HEMATOCRIT 28 % (33-45); LYMPHOCYTES # (AUTO) 1.5 /CMM (0.8-4.8); LYMPHOCYTES % (AUTO) 21.2 % (20.0-44.0); MEAN CORPUSCULAR HEMOGLOBIN 31 PG (26.0-33.0); MEAN CORPUSCULAR HGB CONC 33 g/dl (31.0-36.0); MEAN CORPUSCULAR VOLUME 95 fL (82-100); MONOCYTES # (AUTO) 0.8 /CMM (0.1-1.30); MONOCYTES % (AUTO) 11.1 % (2.0-12.0); NEUTROPHILS # (AUTO) 4.2 /CMM (1.8-8.9); NEUTROPHILS % (AUTO) 61.1 % (43.0-81.0); PLATELET COUNT (AUTO) 239 /CMM (150-450); RDW COEFFICIENT OF VARIATION 14.3 (11.5-15.0); RED BLOOD CELL COUNT(AUTO) 2.92 MIL/uL (4.0-5.2); WHITE BLOOD COUNT (AUTO) 6.9 K/uL (4.3-11.0)
[2017-09-18 07:01] LABS: CARBON DIOXIDE 26 mmol/L (21-32); CHLORIDE 109 mmol/L (98-107); CREATININE 0.7 mg/dL (0.6-1.3); GLUCOSE 138 mg/dL (74-106); POTASSIUM 3.7 mmol/L (3.5-5.1); SODIUM SERUM 144 mmol/L (136-145); UREA NITROGEN, BLOOD 7 mg/dL (7-18)
[2017-09-18] MEDS: LACTOBACILLUS RHAMNOSUS GG 1 EACH CAP.SPRINK PO SCH ×2 (08:22→17:38)
[2017-09-18] MEDS: CLOTRIMAZOLE 1% 15 GM TUBE TP SCH ×2 (08:23→17:36)
[2017-09-18] MEDS: HYDROGEL DRESSING 90 GM TUBE TP SCH (08:23)
[2017-09-18] MEDS: HEPARIN SODIUM, PORCINE 5000 UNITS/1 ML VIAL SQ SCH ×2 (08:25→20:29)
[2017-09-18] MEDS: INSULIN DETEMIR 100 UNIT/ML CARTRIDGE SQ SCH ×2 (08:26→20:29)
--- NOTE | 2017-09-18 19:30 | NUR ---
MS/RN NOTES PT RECEIVED RESTING IN BED. APPEAR COMFORTABLE. NON VERBAL, EYES OPEN. ON 2LPM O2 VIA NC, BREATHING EVEN AND UNLABORED. NO FACIAL GRIMACING OR SIGNS OF PAIN. NO S/S OF SOB OR DISTRESS NOTED. VASQUEZ IN PLACE AND DRAINING WELL TO GRAVITY. ON GT FEEDING GLYTROL AT 60ML/HR, TOLERATING WELL. JENNIFER PICC LINE PATENT AND INTACT. BED IN LOW/LOCKED POSITION WITH CALL LIGHT IN REACH. SIDE RAILS UPX2. BILATERAL MITTENS IN PLACE. TO BE RENEWED AT MIDNIGHT. WILL CONTINUE TO MONITOR
[2017-09-18] MEDS: ACETAMINOPHEN 325 MG TABLET PO PRN (20:14)
--- NOTE | 2017-09-18 20:45 | NUR ---
MS/RN NOTES PT NOTED TO HAVE TEMP 100.6F. PRN TYLENOL ADMINISTERED ORDERED AND COOLING MEASURES IMPLEMENTED. WILL RECHECK. BLOOD JQQTH=[id number], ADMINISTERED SCHEDULED 10 UNITS OF LEVEMIR ORDERED. GT FEEDING RUNNING
[2017-09-18] MEDS: GLYTROL 1,000 ML BAG GT PRN (21:58)
[2017-09-19] MEDS: BLOOD SUGAR DIAGNOSTIC 1 EACH STRIP IN SCH ×5 (00:17→23:21)
[2017-09-19] MEDS: INSULIN REGULAR, HUMAN 100 UNIT/ML 3 ML VIAL SQ PRN ×4 (00:27→18:33)
[2017-09-19 04:00] VITALS: BP 161/99
[2017-09-19] MEDS: CEFEPIME 1 GM in IV D5W 50 ML IV SCH ×2 (04:28→11:42)
--- NOTE | 2017-09-19 07:12 | NUR ---
MS/RN NOTES PT RESTING IN BED. EYES CLOSED, OPENS SPONTANEOUSLY. ON 2LPM O2 VIA NC, BREATHING EVEN AND UNLABORED. NO FACIAL GRIMACING OR SIGNS OF PAIN. NO APPARENT DISTRESS SEEN. JENNIFER PICC PATENT AND INTACT. VASQUEZ IN PLACE AND DRAINING WELL. GT FEEDING RUNNING AT 60ML/HR, NO RESIDUALS NOTED. TURNED/REPOSITIONED Q2H, HEELS OFFLOADED. WOUND CARE PROVIDED ORDERED. NO SIGNIFICANT CHANGES OVERNIGHT. WILL ENDORSE TO AM SHIFT SUMAN.
[2017-09-19 07:42] LABS: CALCIUM, SERUM 8.3 mg/dL (8.5-10.1); CARBON DIOXIDE 25 mmol/L (21-32); CHLORIDE 104 mmol/L (98-107); CREATININE 0.7 mg/dL (0.6-1.3); GLUCOSE 210 mg/dL (74-106); PHOSPHORUS 2.7 mg/dL (2.5-4.9); POTASSIUM 4.2 mmol/L (3.5-5.1); SODIUM SERUM 139 mmol/L (136-145); UREA NITROGEN, BLOOD 10 mg/dL (7-18)
[2017-09-19 08:00] VITALS: BP 138/84
[2017-09-19] MEDS: CLOTRIMAZOLE 1% 15 GM TUBE TP SCH ×2 (08:09→16:42)
[2017-09-19] MEDS: LACTOBACILLUS RHAMNOSUS GG 1 EACH CAP.SPRINK PO SCH ×2 (08:09→16:41)
[2017-09-19] MEDS: HEPARIN SODIUM, PORCINE 5000 UNITS/1 ML VIAL SQ SCH ×2 (08:10→20:34)
[2017-09-19] MEDS: INSULIN DETEMIR 100 UNIT/ML CARTRIDGE SQ SCH ×2 (08:11→20:35)
[2017-09-19 08:48] LABS: BASOPHILS % (AUTO) 0.2 % (0.0-2.0); EOSINOPHILS # (AUTO) 0.3 /CMM (0.0-0.7); EOSINOPHILS % (AUTO) 4.4 % (0.0-6.0); HEMATOCRIT 30 % (33-45); HEMOGLOBIN 9.9 g/dL (11.5-14.8); LYMPHOCYTES # (AUTO) 1.7 /CMM (0.8-4.8); LYMPHOCYTES % (AUTO) 21.4 % (20.0-44.0); MEAN CORPUSCULAR HEMOGLOBIN 31 PG (26.0-33.0); MEAN CORPUSCULAR HGB CONC 33 g/dl (31.0-36.0); MEAN CORPUSCULAR VOLUME 95 fL (82-100); MONOCYTES # (AUTO) 0.6 /CMM (0.1-1.30); NEUTROPHILS # (AUTO) 5.3 /CMM (1.8-8.9); PLATELET COUNT (AUTO) 299 /CMM (150-450); RDW COEFFICIENT OF VARIATION 14.1 (11.5-15.0); RED BLOOD CELL COUNT(AUTO) 3.17 MIL/uL (4.0-5.2); WHITE BLOOD COUNT (AUTO) 7.9 K/uL (4.3-11.0)
[2017-09-19] MEDS: ACETAMINOPHEN 325 MG TABLET PO PRN (09:29)
--- NOTE | 2017-09-19 10:24 | NUR ---
RN NOTE DR. WARD AT [facility] AWARE OF HYPERKALEMIA 5.5 AND POOR NUTRITIONAL INTAKE WITH HIGH ASPIRATION RISK. HOB >35 DEGREES AT ALL TIMES ORDERED. SITTER AT BEDSIDE. Addendum: 09/19/17 at 1044 by FLORENCE BRYAN RN WRONG PATIENT
--- NOTE | 2017-09-19 10:44 | NUR ---
RN NOTE DR. WARD AT [facility] MADE AWARE OF HR 136 AND TEMP 100.4 THIS MORNING.
[2017-09-19 12:07] LABS: EOSINOPHILS % (MANUAL) 1 % (0-4); LYMPHOCYTES % (MANUAL) 19 % (16-48); MONOCYTES % (MANUAL) 10 % (0-11.0); NEUTROPHILS % (MANUAL) 70 (42-76)
[2017-09-19 16:00] VITALS: BP 140/79
[2017-09-19] MEDS: GLYTROL 1,000 ML BAG GT PRN ×2 (16:44→23:15)
[2017-09-19] MEDS ORDERED: FEE PK DOSING 1 MIN EA MC ONE (16:47)
[2017-09-19] MEDS ORDERED: VANCOMYCIN 500 MG in IV D5W 100 ML IV SCH (18:00)
[2017-09-19] MEDS: VANCOMYCIN 1 GM in IV D5W 250 ML IV SCH (18:49)
--- NOTE | 2017-09-19 19:08 | NUR ---
end of shift no apparent change of condition. follows stuimulus with eyes, non-verbal, does not follow command. breathing even and unlabored with o2 3L. no new skin break down. patient repositioned q2h. wound care rendered. z-guard applied. no complications with G-tube stoma, no residuals. no complications with IV, patent, good blood return. f/c patent, draining clear yellow urine. afebrile remainder of shift. call light in reach.
--- NOTE | 2017-09-19 19:10 | NUR ---
RN OPENING NOTES RECEIVED REPORT FROM LEONARDO RN FOR SUMAN. PATIENT A/A/O X1, NON-VERBAL BUT RESPONSIVE TO VERBAL & TACTILE STIMULI. BREATHING EVEN & UNLABORED, ON O2 4L VIA NC.NO RESPIRATORY DISTRESS NOTED. PULSES PRESENT. NO DISTRESS NOTED. RIGHT UPPER ARM PICC LINE INTACT & PATENT W/ DRESSING CDI, SALINE LOCKED. G-TUBE INTACT & FLUSHING WELL W/ GTF GLYTROL @ 60 ML/HR. NO RESIDUAL NOTED. VASQUEZ CATH INTACT, DRAINING YELLOW URINE. N S/S OF ANY PAIN OR DISCOMFORT @ THIS TIME. SAFETY MEASURES IN PLACE W/ SIDE RAILS UP, BED LOCKED IN LOWEST POSITION & BILATERAL SOFT MITTENS. WILL CONTINUE TO MONITOR.
[2017-09-19 20:00] VITALS: BP 156/80
[2017-09-19] MEDS: MEROPENEM 1 G in IV NS 0.9% 100 ML IV SCH (20:28)
[2017-09-19] MEDS ORDERED: MEROPENEM 500 MG in IV NS 0.9% 50 ML IV SCH (21:00)
[2017-09-20 04:00] VITALS: BP 102/64
[2017-09-20] MEDS: INSULIN REGULAR, HUMAN 100 UNIT/ML 3 ML VIAL SQ PRN ×5 (05:22→23:19)
[2017-09-20] MEDS: BLOOD SUGAR DIAGNOSTIC 1 EACH STRIP IN SCH ×4 (05:22→23:17)
[2017-09-20 06:37] LABS: BASOPHILS % (AUTO) 0.5 % (0.0-2.0); EOSINOPHILS # (AUTO) 0.4 /CMM (0.0-0.7); EOSINOPHILS % (AUTO) 5.1 % (0.0-6.0); HEMATOCRIT 31 % (33-45); HEMOGLOBIN 10.3 g/dL (11.5-14.8); LYMPHOCYTES # (AUTO) 1.8 /CMM (0.8-4.8); LYMPHOCYTES % (AUTO) 22.7 % (20.0-44.0); MEAN CORPUSCULAR HEMOGLOBIN 32 PG (26.0-33.0); MEAN CORPUSCULAR HGB CONC 34 g/dl (31.0-36.0); MEAN CORPUSCULAR VOLUME 94 fL (82-100); MONOCYTES # (AUTO) 0.5 /CMM (0.1-1.30); MONOCYTES % (AUTO) 6.6 % (2.0-12.0); NEUTROPHILS # (AUTO) 5.3 /CMM (1.8-8.9); NEUTROPHILS % (AUTO) 65.1 % (43.0-81.0); PLATELET COUNT (AUTO) 276 /CMM (150-450); RDW COEFFICIENT OF VARIATION 13.7 (11.5-15.0); RED BLOOD CELL COUNT(AUTO) 3.26 MIL/uL (4.0-5.2); WHITE BLOOD COUNT (AUTO) 8.1 K/uL (4.3-11.0)
--- NOTE | 2017-09-20 07:23 | NUR ---
RN CLOSING NOTES PATIENT RESTING COMFORTABLY IN BED. NO ACUTE RESPIRATORY DISTRESS. NO SIGNIFICANT CHANGES DURING SHIFT. ALL DUE MEDS GIVEN. SAFETY MEASURES IN PLACE W/ BILATERAL MITTENS. WILL ENDORSE SUMAN TO ONCOMING NURSE.
[2017-09-20 08:00] VITALS: BP 128/69
[2017-09-20] MEDS: LACTOBACILLUS RHAMNOSUS GG 1 EACH CAP.SPRINK PO SCH ×2 (08:17→18:14)
[2017-09-20] MEDS: MEROPENEM 1 G in IV NS 0.9% 100 ML IV SCH ×2 (08:17→20:51)
[2017-09-20] MEDS: HEPARIN SODIUM, PORCINE 5000 UNITS/1 ML VIAL SQ SCH (08:22)
[2017-09-20] MEDS: INSULIN DETEMIR 100 UNIT/ML CARTRIDGE SQ SCH ×2 (08:23→21:00)
[2017-09-20] MEDS: CLOTRIMAZOLE 1% 15 GM TUBE TP SCH ×2 (08:24→18:15)
[2017-09-20 08:48] LABS: CALCIUM, SERUM 9.1 mg/dL (8.5-10.1); CARBON DIOXIDE 28 mmol/L (21-32); CHLORIDE 104 mmol/L (98-107); CREATININE 0.7 mg/dL (0.6-1.3); GLUCOSE 169 mg/dL (74-106); MAGNESIUM 2.2 mg/dL (1.8-2.4); PHOSPHORUS 3.7 mg/dL (2.5-4.9); POTASSIUM 4.1 mmol/L (3.5-5.1); SODIUM SERUM 139 mmol/L (136-145); UREA NITROGEN, BLOOD 12 mg/dL (7-18)
[2017-09-20] MEDS: VANCOMYCIN 1 GM in IV D5W 250 ML IV SCH (11:37)
[2017-09-20 16:00] VITALS: BP 147/75
[2017-09-20] MEDS: HYDROCODONE/APAP 5/325MG 1 EACH TABLET PO PRN (18:14)
[2017-09-20] MEDS: GLYTROL 1,000 ML BAG GT PRN (18:14)
--- NOTE | 2017-09-20 19:10 | NUR ---
RN OPENING NOTES RECEIVED REPORT FROM MURIEL DUFFY. PATIENT A/A/O X1, NON-VERBAL BUT RESPONSIVE TO VERBAL & TACTILE STIMULI. BREATHING EVEN & UNLABORED, ON O2 4L VIA NC. NO RESPIRATORY DISTRESS NOTED. PULSES PRESENT. RIGHT UPPER ARM PICC LINE INTACT & PATENT W/ DRESSING CDI, ON TKO. G-TUBE INTACT & FLUSHING WELL W/ GTF GLYTROL @ 60 ML/HR. NO RESIDUAL NOTED. VASQUEZ CATH INTACT, DRAINING YELLOW URINE. NO S/S OF ANY PAIN OR DISCOMFORT @ THIS TIME. SAFETY MEASURES IN PLACE W/ SIDE RAILS UP, BED LOCKED IN LOWEST POSITION & BILATERAL SOFT MITTENS. WILL CONTINUE TO MONITOR.
[2017-09-20 20:00] VITALS: BP 112/75
[2017-09-21 04:00] VITALS: BP 135/78
[2017-09-21] MEDS: GLYTROL 1,000 ML BAG GT PRN ×2 (04:27→20:59)
[2017-09-21] MEDS: BLOOD SUGAR DIAGNOSTIC 1 EACH STRIP IN SCH ×4 (05:15→23:53)
[2017-09-21] MEDS: INSULIN REGULAR, HUMAN 100 UNIT/ML 3 ML VIAL SQ PRN ×4 (05:20→23:56)
[2017-09-21 05:50] LABS: BASOPHILS % (AUTO) 0.3 % (0.0-2.0); EOSINOPHILS # (AUTO) 0.4 /CMM (0.0-0.7); EOSINOPHILS % (AUTO) 5.2 % (0.0-6.0); HEMATOCRIT 31 % (33-45); HEMOGLOBIN 10.1 g/dL (11.5-14.8); LYMPHOCYTES # (AUTO) 1.5 /CMM (0.8-4.8); LYMPHOCYTES % (AUTO) 20.3 % (20.0-44.0); MEAN CORPUSCULAR HEMOGLOBIN 31 PG (26.0-33.0); MEAN CORPUSCULAR HGB CONC 33 g/dl (31.0-36.0); MEAN CORPUSCULAR VOLUME 95 fL (82-100); MONOCYTES # (AUTO) 0.5 /CMM (0.1-1.30); MONOCYTES % (AUTO) 6.9 % (2.0-12.0); NEUTROPHILS # (AUTO) 4.9 /CMM (1.8-8.9); NEUTROPHILS % (AUTO) 67.3 % (43.0-81.0); PLATELET COUNT (AUTO) 323 /CMM (150-450); RDW COEFFICIENT OF VARIATION 13.9 (11.5-15.0); RED BLOOD CELL COUNT(AUTO) 3.24 MIL/uL (4.0-5.2); WHITE BLOOD COUNT (AUTO) 7.4 K/uL (4.3-11.0)
[2017-09-21 06:13] LABS: CALCIUM, SERUM 9.4 mg/dL (8.5-10.1); CARBON DIOXIDE 28 mmol/L (21-32); CHLORIDE 105 mmol/L (98-107); CREATININE 0.7 mg/dL (0.6-1.3); GLUCOSE 213 mg/dL (74-106); MAGNESIUM 2.2 mg/dL (1.8-2.4); PHOSPHORUS 3.6 mg/dL (2.5-4.9); POTASSIUM 4.5 mmol/L (3.5-5.1); SODIUM SERUM 139 mmol/L (136-145); UREA NITROGEN, BLOOD 15 mg/dL (7-18)
[2017-09-21] MEDS: VANCOMYCIN 1 GM in IV D5W 250 ML IV SCH (06:28)
--- NOTE | 2017-09-21 07:38 | NUR ---
RN CLOSING NOTES PATIENT RESTING COMFORTABLY IN BED. NO ACUTE RESPIRATORY DISTRESS. NO SIGNIFICANT CHANGES DURING SHIFT. TOLERATED GTF WELL W/ NO RESIDUALS NOTED. ALL DUE MEDS GIVEN. SAFETY MEASURES IN PLACE W/ BILATERAL MITTENS. WILL ENDORSE SUMAN TO ONCOMING NURSE.
[2017-09-21 08:00] VITALS: BP_SYST 133; BP_DIAS 64; BP_DIAS 69
--- NOTE | 2017-09-21 08:44 | NUR ---
WOUND CARE CONSULT: PT SEEN FOR LEFT EAR ABRASION. PT HAD PULSE OX ON LEFT EAR PER NURSING STAFF AND HAS TINY ABRASION. RECOMMENDATIONS MADE FOR LEFT EAR WOUND CARE. DISCUSSED WITH NURSING STAFF. PT HAS MULTIPLE SKIN ISSUES AND WOUNDS WHICH ARE FOLLOWED BY SURGICAL TEAM. WILL SEE PRN. BALDWIN IN AGREEMENT WITH PLAN OF CARE.
[2017-09-21] MEDS: LACTOBACILLUS RHAMNOSUS GG 1 EACH CAP.SPRINK PO SCH ×2 (08:49→17:03)
[2017-09-21] MEDS: MEROPENEM 1 G in IV NS 0.9% 100 ML IV SCH ×2 (08:50→20:59)
[2017-09-21] MEDS: HYDROCODONE/APAP 5/325MG 1 EACH TABLET PO PRN (08:50)
[2017-09-21] MEDS: INSULIN DETEMIR 100 UNIT/ML CARTRIDGE SQ SCH ×2 (09:01→21:00)
[2017-09-21] MEDS: CLOTRIMAZOLE 1% 15 GM TUBE TP SCH ×2 (09:04→17:04)
--- NOTE | 2017-09-21 09:05 | NUR ---
RN NOTE PT ON BED, AOX1, BREATHING FAST, PT SCRATCHES HER LATERAL SIDE OF TRUNK, UNEASY, HOD >30 DEGREES, G TUBE FEEDING RUNNING, MITTENS ARE ON, F/C IN PLACE, URINE CLEAR YELLOW, PT CLEAN AND DRY. SAFETY MEASURES IMPLEMENTED, CALL LIGHT WITHIN REACH. WILL CONTINUE TO MONITOR.
--- NOTE | 2017-09-21 15:10 | NUR ---
RN NOTE REPORT GIVEN TO TATI BAH FOR SUMAN. PT STABLE.
[2017-09-21 16:00] VITALS: BP 122/77
[2017-09-21] MEDS: BACITRACIN/POLYMYXIN B 15 GM TUBE TP SCH ×2 (17:00→17:04)
--- NOTE | 2017-09-21 17:15 | NUR ---
RN NOTE PATIENT RECEIVED VIA DAYSHIFT NURSE LLAMAS PATIENT STABLE, IV ACCESS ASSESSED PATIENT REPOSITIONED MEDICATION ADMINISTERED RN WILL CONTINUE TO MONITOR
--- NOTE | 2017-09-21 18:39 | NUR ---
RN CLOSING NOTES PATIENT RESTING COMFORTABLY IN BED. NO ACUTE RESPIRATORY DISTRESS. NO CHANGES THROUGHOUT THE SHIFT. TOLERATED GTF WELL W/ NO RESIDUALS NOTED. ALL PM MEDS ADMINISTERED . SAFETY MEASURES IN PLACE W/ BILATERAL MITTENS PATIENT WITNESSED SCRATCHING LEGS RN WILL ENDORSE SUMAN TO ONCOMING NURSE.
[2017-09-21 20:00] VITALS: BP 121/77
--- NOTE | 2017-09-21 20:00 | NUR ---
RECEIVED PATIENT IN BED, PATIENT IS A&O X1, RESTLESS, TRIES TO PULL THE LINES, BILAT. MITTENS ARE ON, RESTRAINS ASSESSMENT IS DONE, NO NEW INJURIES NOTED. VSS, AFEBRILE, NO PAIN/DISTRESS NOTED PATIENT TURNED AND REPOSITIONED AT THIS TIME. CONTINUE TO MONITOR
[2017-09-22 04:00] VITALS: BP 167/91
[2017-09-22 05:34] LABS: BASOPHILS % (AUTO) 0.5 % (0.0-2.0); EOSINOPHILS # (AUTO) 0.4 /CMM (0.0-0.7); EOSINOPHILS % (AUTO) 4.4 % (0.0-6.0); HEMATOCRIT 33 % (33-45); HEMOGLOBIN 10.5 g/dL (11.5-14.8); LYMPHOCYTES # (AUTO) 2.2 /CMM (0.8-4.8); LYMPHOCYTES % (AUTO) 25.1 % (20.0-44.0); MEAN CORPUSCULAR HEMOGLOBIN 31 PG (26.0-33.0); MEAN CORPUSCULAR HGB CONC 33 g/dl (31.0-36.0); MEAN CORPUSCULAR VOLUME 95 fL (82-100); MONOCYTES # (AUTO) 0.6 /CMM (0.1-1.30); MONOCYTES % (AUTO) 6.4 % (2.0-12.0); NEUTROPHILS # (AUTO) 5.5 /CMM (1.8-8.9); NEUTROPHILS % (AUTO) 63.6 % (43.0-81.0); PLATELET COUNT (AUTO) 379 /CMM (150-450); RDW COEFFICIENT OF VARIATION 14.5 (11.5-15.0); RED BLOOD CELL COUNT(AUTO) 3.43 MIL/uL (4.0-5.2); WHITE BLOOD COUNT (AUTO) 8.6 K/uL (4.3-11.0)
[2017-09-22] MEDS: BLOOD SUGAR DIAGNOSTIC 1 EACH STRIP IN SCH ×3 (05:38→17:26)
[2017-09-22] MEDS: INSULIN REGULAR, HUMAN 100 UNIT/ML 3 ML VIAL SQ PRN ×3 (05:40→17:25)
[2017-09-22 05:44] LABS: CALCIUM, SERUM 10.4 mg/dL (8.5-10.1); CARBON DIOXIDE 34 mmol/L (21-32); CHLORIDE 105 mmol/L (98-107); CREATININE 0.7 mg/dL (0.6-1.3); GLUCOSE 209 mg/dL (74-106); POTASSIUM 4.6 mmol/L (3.5-5.1); SODIUM SERUM 141 mmol/L (136-145); UREA NITROGEN, BLOOD 15 mg/dL (7-18)
[2017-09-22 06:00] VITALS: BP 136/78
[2017-09-22] MEDS ORDERED: VANCOMYCIN 1 GM in IV D5W 250 ML IV SCH (06:00)
[2017-09-22 06:03] LABS: THYROID STIMULATING HORMONE 7.113 uIU/mL (0.358-3.74)
--- NOTE | 2017-09-22 07:54 | NUR ---
MS RN NOTES, PATIENT IN BED AWAKE EYES OPEN BUT CONFUSED TRYING TO PULL IV LINES, PT HAS BILATERAL SOFT MITTENS, F/C TO GRAVITY DRAINING YELLOW URINE, PT IN KCI MATTRESS FOR SKIN MANAGEMENT, ON GTF ORDERED NO RESIDUAL NOTES AT THIS TIME HOB ELEVATED AT ALL TIMES, JENNIFER PICC LINE IN PLACE, NO S/S OF INFECTION NOTES, BED IN LOWEST AND LOCKED POSITION, CALL LIGHT W/I REACH, ON 2LPM VIA N/C, NO SOB, WILL CONTINUE TO MONITOR CLOSELY.
[2017-09-22 08:00] VITALS: BP 151/84
[2017-09-22] MEDS: MEROPENEM 1 G in IV NS 0.9% 100 ML IV SCH (08:59)
[2017-09-22] MEDS: LACTOBACILLUS RHAMNOSUS GG 1 EACH CAP.SPRINK PO SCH ×2 (09:00→16:42)
[2017-09-22] MEDS: BACITRACIN/POLYMYXIN B 15 GM TUBE TP SCH ×2 (09:00→17:26)
[2017-09-22] MEDS: INSULIN DETEMIR 100 UNIT/ML CARTRIDGE SQ SCH (09:00)
[2017-09-22] MEDS: CLOTRIMAZOLE 1% 15 GM TUBE TP SCH ×2 (09:01→16:42)
--- NOTE | 2017-09-22 11:41 | NUR ---
MS RN NOTES, SPOKE WITH PHARMACY X3 FOR POLYSPORIN NOT AVAILABLE, WILL FOLLOW UP.
[2017-09-22] MEDS ORDERED: LEVO500T15 GT (12:36)
[2017-09-22] MEDS ORDERED: CLOT15CR35 TP (12:36)
--- NOTE | 2017-09-22 12:57 | NUR ---
MS RN NOTE SEEN BY DR PINO WITH ORDER TO D\C TO SNF AND REMOVED VASQUEZ , VASQUEZ CATH REMOVED WILL F\U
--- NOTE | 2017-09-22 15:04 | NUR ---
MS RN NOTES, SPOKE WITH ZENIA MOSQUERA REGARDING PT DISCHARGE , SPOKE WITH TILER , O2 SATURATION 83% AT ROOM AIR, PT WILL BE DISCHARGE HOME, SPOKE WITH SISTER, SHE WILL BE IN CHARGE OF CARE OF PATIENT AT HOME, EDUCATION PROVIDED VIA TELEPHONE REGARDING DISCHARGE PLAN, LEFT MESSAGE TO ZENIA MOSQUERA AND DUNCAN REGARDING OXYGEN AT HOME, WILL F/U, PATIENT BACK TO OXYGEN AT 2/PM VIA N/C.
[2017-09-22 16:00] VITALS: BP 139/83
--- NOTE | 2017-09-22 16:06 | NUR ---
CLEARING HOUSE CLERK NOTE O2 TANK AT BEDSIDE AND PER INSURANCE LOSS ASSESSOR [employer] TANK OF O2 WILL BE DELIVERED . SISTER BRIAN SPOKE WITH ANABEL INSURANCE LOSS ASSESSOR ABOUT O2 ARRANGEMENT
[2017-09-22 16:09] VITALS: BP 139/85
--- NOTE | 2017-09-22 16:56 | NUR ---
MS RN NOTE SPOKE WITH BRIAN PATTON ,NOTIFIED THAT PATIENT WILL BE DISCHARGE AT 1800 , ALSO D\C INSTRUCTION GIVEN VIA TELEPHONE AND RX EMPLANED HOW TO TAKE VIA G TUBE , PATENT HAS NO BELONGINGS, AND RETURN FOR ANY CONCERNS
--- NOTE | 2017-09-22 18:16 | NUR ---
MS RN NOTE WAITING CALL FROM ANABEL BANKS TO CHECK IF O2 WAS DELIVERED AT HOME , AMBULANCE CREW UNABLE TO TAKE PATIENT WITH REGULAR O2 TANK FOR SAFETY ISSUE, WILL F\U
--- NOTE | 2017-09-22 18:52 | NUR ---
MS RN NOTES, PATIENT ON BED, STILL WITH RESTRAINS (SOFT MITTENS), UNABLE TO WEAN, PATIENT STILL NOTED TRYING TO PULL LINES, WILL CONTINUE TO MONITOR CLOSELY, AWAITING FOR TRANSPORTATION, PATIENT WILL BE DISCHARGED HOME.
--- NOTE | 2017-09-22 19:18 | NUR ---
MS RN NOTES, VASQUEZ CATHETER REMOVED ORDERED, PATIENT VOIDS X1 AFTER REMOVAL OF CATHETER, WILL ENDORSE CARE TO NEXT SHIFT.
--- NOTE | 2017-09-22 19:22 | NUR ---
MS RN NOTES, ENDORSED CARE TO FLORENCE DUFFY ABOUT OXYGEN PORTABLE TANK, FAMILY WILL PICK IT UP TOMORROW MORNING, PER [employer]NA[employer] MEDICAL PAYMENT POSTER STATEMENT.
--- NOTE | 2017-09-22 19:50 | NUR ---
MS RN NOTE PT PICKED UP BY EMT'S. GTUBE CLEAN, PATENT AND FLUSHING WELL. CLEAN AND DRY. IV PICC LINE REMOVED SAFELY, CAREFULLY AND WITH TIP INTACT AND CLEAN. NO C/O PAIN OR DISCOMFORT NOTED. NO SOB. ON 2L OF NC AND SATURATING 98%. TRANSFERRED SAFELY TO [facility]. NO ACUTE DISTRESS NOTED. FAMILY AWARE OF PICKING UP THE OXYGEN TANK TOMORROW PER CM ANABEL.
[2017-09-26 07:07] LABS: *SPE A/G RATIO 0.6 (0.7-1.7); *SPE ALBUMIN 2.5 g/dL (2.9-4.4); *SPE ALPHA-1-GLOBULIN 0.4 g/dL (0.0-0.4); *SPE ALPHA-2-GLOBULIN 1.2 g/dL (0.4-1.0); *SPE GLOBULIN, TOTAL 3.9 g/dL (2.2-3.9); *SPE M-SPIKE Not Observed g/dL (Not Observed); *SPE PROTEIN TOTAL 6.4 g/dL (6.0-8.5); *SPEGAMMA GLOBULIN 1.3 g/dL (0.4-1.8)
== END 2017-09-22 19:45 | disposition home or self-care (01) | DRG 871 ==
LOC: ER 19:05 → ICU 20:31 → TELE-TD 09-16 08:15 → TELE1 09-17 10:21 → MEDSG1 09-18 17:37
PROVIDERS: ADMIT Nurse Practitioner Acute Care; ATTEND Nurse Practitioner Acute Care
PROC: 02HV33Z Insertion of Infusion Device into Superior Vena Cava, Percutaneous Approach (ICD-10-PCS; principal; 2017-09-13)
PROC: B548ZZA Ultrasonography of Superior Vena Cava, Guidance (ICD-10-PCS; 2017-09-13)
DX: A41.9 Sepsis, unspecified organism (principal); G93.41 Metabolic encephalopathy; N17.0 Acute kidney failure with tubular necrosis; J96.01 Acute respiratory failure with hypoxia; R65.21 Severe sepsis with septic shock; E11.10 Type 2 diabetes mellitus with ketoacidosis without coma; J90 Pleural effusion, not elsewhere classified; J18.9 Pneumonia, unspecified organism; L89.322 Pressure ulcer of left buttock, stage 2; E44.1 Mild protein-calorie malnutrition; N39.0 Urinary tract infection, site not specified; E87.0 Hyperosmolality and hypernatremia; M85.80 Other specified disorders of bone density and structure, unspecified site; B96.20 Unspecified Escherichia coli [E. coli] as the cause of diseases classified elsewhere; D63.8 Anemia in other chronic diseases classified elsewhere; E83.42 Hypomagnesemia; E83.51 Hypocalcemia; E87.6 Hypokalemia; F03.90 Unspecified dementia, unspecified severity, without behavioral disturbance, psychotic disturbance, mood disturbance, and anxiety; F32.9 Major depressive disorder, single episode, unspecified; G20 Parkinson's disease; G40.909 Epilepsy, unspecified, not intractable, without status epilepticus; I25.2 Old myocardial infarction; I25.10 Atherosclerotic heart disease of native coronary artery without angina pectoris; N18.9 Chronic kidney disease, unspecified; M19.90 Unspecified osteoarthritis, unspecified site; Z93.1 Gastrostomy status; J20.9 Acute bronchitis, unspecified; E88.09 Other disorders of plasma-protein metabolism, not elsewhere classified; R13.10 Dysphagia, unspecified; L98.8 Other specified disorders of the skin and subcutaneous tissue; L89.620 Pressure ulcer of left heel, unstageable; L89.610 Pressure ulcer of right heel, unstageable; Z79.4 Long term (current) use of insulin; F44.4 Conversion disorder with motor symptom or deficit; I12.9 Hypertensive chronic kidney disease with stage 1 through stage 4 chronic kidney disease, or unspecified chronic kidney disease
CPT/HCPCS: 36415; 36600; 71010-TC; 71250-TC; 80048-TC; 80061-TC; 80076-TC; 80202-TC; 81000-TC; 82728-TC; 82746; 82803-TC; 82962-TC; 83540-TC; 83605-TC; 83735-TC; 83880; 84100-TC; 84155; 84165; 84443-TC; 84484-TC; 85025-TC; 85730-TC; 87040-TC; 87081-TC; 87086-TC; 87186-TC; 93307-TC; A4216; A4606; A6248; A6253; A6403; C1751; J0610; J0692; J1644; J1815; J2185; J2370; J2543; J3370; J3475; J3480; J3490; J7030; J7050; J7060; Z7610

== ENCOUNTER 2017-11-18 19:33 | Inpatient (IN) | payer MEDICARE, OTHER ==
[~2017-11-18] VITALS: Ht 134.6 cm; Wt 49.7 kg
[~2017-11-18 19:33] MED LIST changes: -ACET-868 PO; -ALLA266C2 TP; -ASPI325T2 PO; +CLOT15CR35 TP; +DOCU-141 GT; -DOCU-25 GT; +FERR220S2 GT; +INSU100I4 SQ; -INSU3INS9 SQ; +LEVO500T2 GT; +METF500T4 GT; -NA P133E RC; -NUTR100037 GT; +POTA20TA83 GT
--- NOTE | 2017-11-18 21:30 | NUR ---
RN ADMITTING MS INITIAL NOTES PT IS A 77 YR OLD F, FROM [facility], REASON FOR TRANSFER TO [facility] IS [facility] [address] PEREZ ADMITTING, LICENSED INSURANCE SALES AGENT DR MINA Rios, IN PUT ADMITTING ORDERS. PT OBTUNDED, AWAKE NON VERBAL, CARE PROVIDED BY FAMILY @ HOME, ON R/A WELL ABDI, O2 SAT 98 % NO FACIAL GRIMANCING NOTED, WITH RFA#22G, PATENT FLUSHED, WELL SECURED, ASSESSMENT DONE PER PROTOCOL, NOTED WITH SKIN ISSUES, PHOTOS TAKEN AND FILED, WOUND CONSUL ORDERED, WELL MRSA SWAB DONE. ADMITTING ORDERS OBTAINED AND CARRIED OUT. NPO STATUS WITH D5 1/2 NS 2 75 ML/HR. SECONDARY ADMITTING DIAGNOSIS PNA, SEPSIS, HYPERNATREMIA. PT KEPT CLEAN AND DRY, WELL REPOSITIONED. ALL SAFETY MEASURES MET WELL NEEDS. WILL F/U ON PLAN OF CARE WITH MD ON CASE.
[2017-11-19] MEDS ORDERED: ACETAMINOPHEN 650 MG/SUPP.RECT RC PRN
[2017-11-19] MEDS ORDERED: ONDANSETRON HCL/PF 4 MG/2 ML VIAL IVP PRN
[2017-11-19] MEDS ORDERED: DEXTROSE 50%-WATER 50 ML DISP.SYRIN IV PRN
[2017-11-19] MEDS ORDERED: Z GUARD REMEDY 2 OZ OINT TP PRN
[2017-11-19] MEDS ORDERED: MORPHINE SULFATE INJ 2 MG/ML DISP.SYRIN IV PRN
[2017-11-19] MEDS: BLOOD SUGAR DIAGNOSTIC 1 EACH STRIP IN SCH ×5 (00:16→23:33)
[2017-11-19] MEDS: IV D5/0.45 NACL 1,000 ML IV PRN ×2 (00:20→22:15)
[2017-11-19] MEDS: INSULIN REGULAR, HUMAN 100 UNIT/ML 3 ML VIAL SQ PRN ×5 (00:28→23:44)
[2017-11-19] MEDS ORDERED: AZITHROMYCIN 500 MG in IV D5W 250 ML IV SCH ×2 (01:30→23:00)
[2017-11-19] MEDS ORDERED: CEFTRIAXONE 1 G in IV D5W 50 ML IV SCH ×2 (01:30→22:00)
[2017-11-19] MEDS ORDERED: CEFTRIAXONE 1 G VIAL ONE (01:54)
[2017-11-19] MEDS ORDERED: AZITHROMYCIN 500 MG VIAL ONE (01:55)
[2017-11-19 02:13] LABS: BASOPHILS % (AUTO) 0.6 % (0.0-2.0); EOSINOPHILS # (AUTO) 0.6 /CMM (0.0-0.7); EOSINOPHILS % (AUTO) 8.4 % (0.0-6.0); HEMATOCRIT 36 % (33-45); HEMOGLOBIN 11.6 g/dL (11.5-14.8); LYMPHOCYTES # (AUTO) 2.1 /CMM (0.8-4.8); LYMPHOCYTES % (AUTO) 31.3 % (20.0-44.0); MEAN CORPUSCULAR HEMOGLOBIN 30 PG (26.0-33.0); MEAN CORPUSCULAR HGB CONC 33 g/dl (31.0-36.0); MEAN CORPUSCULAR VOLUME 93 fL (82-100); MONOCYTES # (AUTO) 0.5 /CMM (0.1-1.30); NEUTROPHILS # (AUTO) 3.6 /CMM (1.8-8.9); NEUTROPHILS % (AUTO) 52.7 % (43.0-81.0); PLATELET COUNT (AUTO) 345 /CMM (150-450); RDW COEFFICIENT OF VARIATION 15.2 (11.5-15.0); RED BLOOD CELL COUNT(AUTO) 3.88 MIL/uL (4.0-5.2); WHITE BLOOD COUNT (AUTO) 6.8 K/uL (4.3-11.0)
[2017-11-19 02:23] LABS: CALCIUM, SERUM 9.1 mg/dL (8.5-10.1); CARBON DIOXIDE 24 mmol/L (21-32); CHLORIDE 109 mmol/L (98-107); GLUCOSE 186 mg/dL (74-106); POTASSIUM 4.2 mmol/L (3.5-5.1); SODIUM SERUM 142 mmol/L (136-145); UREA NITROGEN, BLOOD 18 mg/dL (7-18)
[2017-11-19 04:00] VITALS: BP 125/65
--- NOTE | 2017-11-19 06:22 | NUR ---
RN MS CLOSING NOTES PT CONT ON R/A WELL ABDI, ALL AM CARE PROVIDED, KEPT CLEAN, WELL REPOSITIONED WILL ENDORSE FOR SUMAN.
[2017-11-19 08:00] VITALS: BP_SYST 106; BP_SYST 144; BP_DIAS 66; BP_DIAS 71
[2017-11-19 08:06] LABS: BASOPHILS % (AUTO) 0.3 % (0.0-2.0); EOSINOPHILS # (AUTO) 0.7 /CMM (0.0-0.7); HEMATOCRIT 36 % (33-45); HEMOGLOBIN 11.7 g/dL (11.5-14.8); LYMPHOCYTES # (AUTO) 2.2 /CMM (0.8-4.8); LYMPHOCYTES % (AUTO) 35.2 % (20.0-44.0); MEAN CORPUSCULAR HEMOGLOBIN 30 PG (26.0-33.0); MEAN CORPUSCULAR HGB CONC 33 g/dl (31.0-36.0); MEAN CORPUSCULAR VOLUME 93 fL (82-100); MONOCYTES # (AUTO) 0.6 /CMM (0.1-1.30); MONOCYTES % (AUTO) 9.2 % (2.0-12.0); NEUTROPHILS # (AUTO) 2.7 /CMM (1.8-8.9); NEUTROPHILS % (AUTO) 44.3 % (43.0-81.0); PLATELET COUNT (AUTO) 321 /CMM (150-450); RDW COEFFICIENT OF VARIATION 15.4 (11.5-15.0); RED BLOOD CELL COUNT(AUTO) 3.86 MIL/uL (4.0-5.2); WHITE BLOOD COUNT (AUTO) 6.2 K/uL (4.3-11.0)
[2017-11-19 08:26] LABS: ALANINE AMINOTRANSFERASE 35 U/L (12-78); ALBUMIN 2.8 g/dL (3.4-5.0); ALKALINE PHOSPHATASE 67 U/L (46-116); ASPARTATE AMINOTRANSFERASE 40 U/L (15-37); BILIRUBIN,TOTAL 0.3 mg/dL (0.2-1.0); CALCIUM, SERUM 8.7 mg/dL (8.5-10.1); CARBON DIOXIDE 24 mmol/L (21-32); CHLORIDE 106 mmol/L (98-107); GLUCOSE 186 mg/dL (74-106); MAGNESIUM 1.6 mg/dL (1.8-2.4); PHOSPHORUS 2.6 mg/dL (2.5-4.9); POTASSIUM 4.4 mmol/L (3.5-5.1); SODIUM SERUM 138 mmol/L (136-145); TOTAL PROTEIN, SERUM 7.4 g/dL (6.4-8.2); UREA NITROGEN, BLOOD 14 mg/dL (7-18)
[2017-11-19] MEDS: PANTOPRAZOLE 40 MG VIAL IV SCH (08:31)
--- NOTE | 2017-11-19 09:54 | NUR ---
RN NOTES PT NOTED WITH LOW MG 1.6, TO BE REPLACED WITH [id number]/[id number] X 2 DOSES TODAY. WILL CONTINUE TO MONITOR.
[2017-11-19] MEDS: Magnesium 1GM/D5W 100ML PREMIX 100 ML IV SCH ×2 (10:49→11:43)
[2017-11-19 11:41] LABS: CHOLESTEROL 153 mg/dL (<200); HDL CHOLESTEROL 27 mg/dL (40-60); LDL 90 mg/dL (0-99); THYROID STIMULATING HORMONE 6.475 uIU/mL (0.358-3.74); TRIGLYCERIDES 314 mg/dL (30-150)
--- NOTE | 2017-11-19 15:52 | NUR ---
RN NOTES PT'S IV ACCESS ON RIGHT FA G#22 INFILTRATED, NEW IV LINE G#22 INSERTED TO LEFT WRIST. WILL CONTINUE TO MONITOR.
[2017-11-19 16:00] VITALS: BP 126/77
--- NOTE | 2017-11-19 18:58 | NUR ---
MS RN CLOSING NOTES PATIENT COMFORTABLY LYING IN BED. HOB KEPT ELEVATED. OBTUNDED, OPEN HER EYES, RESPONSIVE TO TACTILE AND PAIN STIMULI. ON ROOM AIR, BREATHING EVEN WITH NO SIGNS OF DISTRESS NOTED. PT NPO AT THIS TIME. G-TUBE IN PLACED BUT NON-FUNCTIONAL. IV ACCESS ON LEFT WRIST G#22G INTACT AND PATENT WITH IVF OF D5 1/2 NS @ 75ML/HR INFUSING, NO SIGNS OF INFILTRATION NOTED. KEPT BED LOCKED AND IN LOWEST POSITION WITH SIDE RAILS UP X3. CALL LIGHT WITHIN REACH. ALL NEEDS AND CARE PROVIDED WELL. WILL ENDORSED TO WHEEL CLEANER NURSE FOR SUMAN.
[2017-11-19 20:00] VITALS: BP 124/78
--- NOTE | 2017-11-19 20:30 | NUR ---
RN INITIAL MS NOTES RECEIVED PT LYING MODERATE HIGH BACKREST IN BED. OBTUNDED, OPEN HER EYES, RESPONSIVE TO TACTILE AND PAIN STIMULI. ON ROOM AIR, BREATHING EVEN WITH NO SIGNS OF DISTRESS NOTED. PT NPO AT THIS TIME. G-TUBE IN PLACED BUT NON-FUNCTIONAL. IV ACCESS ON RIGHT FA G#22G INTACT AND PATENT WITH IVF OF D5 1/2 NS @ 75ML/HR INFUSING, NO SIGNS OF INFILTRATION NOTED. BED LOCKED AND IN LOWEST POSITION WITH SIDE RAILS UP X3. CALL LIGHT WITHIN REACH. WILL CONT TO MONITOR.
[2017-11-19] MEDS ORDERED: NALOXONE HCL 0.4 MG/ML AMPUL ONE (22:32)
[2017-11-20] VITALS: BP 125/62
[2017-11-20 04:00] VITALS: BP 111/61
[2017-11-20] MEDS: BLOOD SUGAR DIAGNOSTIC 1 EACH STRIP IN SCH ×4 (05:32→23:43)
[2017-11-20] MEDS: INSULIN REGULAR, HUMAN 100 UNIT/ML 3 ML VIAL SQ PRN ×2 (05:40→23:46)
--- NOTE | 2017-11-20 05:55 | NUR ---
RN MS CLOSING NOTES PT CONT ON R/A WELL ABDI, ALL AM CARE PROVIDED, KEPT CLEAN, WELL REPOSITIONED WILL ENDORSE PT NOTED WITH BLISTERS FILLED WITH CLEAR FLUIDS APPEARING INTERMITTENTLY AND BUSTING, AM SHIFT FOR SUMAN.
[2017-11-20 07:35] LABS: CALCIUM, SERUM 8.8 mg/dL (8.5-10.1); CARBON DIOXIDE 23 mmol/L (21-32); CHLORIDE 107 mmol/L (98-107); CREATININE 1.1 mg/dL (0.6-1.3); GLUCOSE 191 mg/dL (74-106); MAGNESIUM 2.2 mg/dL (1.8-2.4); POTASSIUM 3.9 mmol/L (3.5-5.1); SODIUM SERUM 140 mmol/L (136-145); UREA NITROGEN, BLOOD 7 mg/dL (7-18)
[2017-11-20 08:00] VITALS: BP 130/76
--- NOTE | 2017-11-20 08:20 | NUR ---
MS RN RECEIVED ON BED, AWAKE,NON VERBAL PATIENT ,NOT IN ANY FORM OF DISTRESS, RESPIRATIONS EVEN AND UNLABORED,NO SOB NOTED, LUNGS ARE DOMINISH, ABDOMEN SOFT,POSITIVE BOWEL SOUNDS, DENIES PAIN AT THIS TIME, WILL MONITOR PATIENT'S CONDITION. ALL NEEDS ATTENDED.
[2017-11-20] MEDS: PANTOPRAZOLE 40 MG VIAL IV SCH (09:43)
--- NOTE | 2017-11-20 10:00 | NUR ---
MS RN PATIENT ON BED, NO DISTRESS NOTED, WAS SEEN BY DR. SYL Hernandez/ JONO TO HAVE PEG PLACEMENT ON TUESDAY.
[2017-11-20 16:00] VITALS: BP 127/73
[2017-11-20] MEDS: LACTOBACILLUS RHAMNOSUS GG 1 EACH CAP.SPRINK PO SCH (16:49)
[2017-11-20] MEDS: IV D5/0.45 NACL 1,000 ML IV PRN (17:02)
--- NOTE | 2017-11-20 18:15 | NUR ---
MS RN ON BED, NO CHANGE OF CONDITION,ALL NEEDS ATTENDED.
--- NOTE | 2017-11-20 19:20 | NUR ---
RN OPEN NOTES RECEIVED PATIENT AWAKE IN BED. NON-VERBAL WITH EYE OPENING RESPONSE. NO SIGNS OF DISTRESS OR DISCOMFORT. BREATHING EVEN AND UNLABORED. IV ACCESS IN L WRIST WITH D5 1/2 NS INFUSING, PATENT AND INTACT, NO SIGNS OF REDNESS OR INFILTRATION. BED IN LOW LOCKED POSITION WITH SIDE RAILS X2. CALL LIGHT WITHIN REACH. WILL CONTINUE TO MONITOR.
[2017-11-20 20:00] VITALS: BP 115/64
[2017-11-21] MEDS: BLOOD SUGAR DIAGNOSTIC 1 EACH STRIP IN SCH ×4 (06:04→23:16)
[2017-11-21] MEDS: INSULIN REGULAR, HUMAN 100 UNIT/ML 3 ML VIAL SQ PRN ×4 (06:06→23:14)
--- NOTE | 2017-11-21 06:48 | NUR ---
RN CLOSING NOTES PATIENT RESTING IN BED, EASILY AROUSABLE. NON-VERBAL WITH EYE OPENING RESPONSE. NO SIGNS OF DISTRESS OR DISCOMFORT. BREATHING EVEN AND UNLABORED. IV ACCESS IN L WRIST WITH D5 1/2 NS INFUSING, PATENT AND INTACT, NO SIGNS OF REDNESS OR INFILTRATION. HAS G-TUBE INPLACE AND CLAMPED. ALL NEEDS MET. NO SIGNIFICANT CHANGES THROUGH THE NIGHT. BED IN LOW LOCKED POSITION WITH SIDE RAILS X2. CALL LIGHT WITHIN REACH. WILL ENDORSE TO AM SHIFT FOR SUMAN.
--- NOTE | 2017-11-21 07:25 | NUR ---
RN OPENING NOTES PATIENT RESTING IN BED, EASILY AROUSABLE. NON-VERBAL WITH EYE OPENING RESPONSE. NO SIGNS OF DISTRESS OR DISCOMFORT. RESPIRATIONS EVEN AND UNLABORED. IV ACCESS IN L WRIST WITH D5 1/2 NS INFUSING, PATENT AND INTACT, NO SIGNS OF REDNESS OR INFILTRATION. HAS G-TUBE INPLACE AND CLAMPED, NPO OR THROUGH GT AT THIS TIME PER ORDERS. ALL NEEDS MET, SAFETY MEASURES IN PLACE. BED IN LOW LOCKED POSITION WITH SIDE RAILS X2. CALL LIGHT WITHIN REACH, WILL CONTINUE TO MONITOR
[2017-11-21 08:00] VITALS: BP 122/68
[2017-11-21] MEDS: LACTOBACILLUS RHAMNOSUS GG 1 EACH CAP.SPRINK PO SCH ×2 (08:02→17:00)
[2017-11-21] MEDS: PANTOPRAZOLE 40 MG VIAL IV SCH (08:51)
--- NOTE | 2017-11-21 10:58 | NUR ---
RN NOTES ALL DUE MEDICATIONS ADMINISTERED WITH NO ASE NOTED, WILL CONTINUE TO MONITOR
[2017-11-21] MEDS: IV D5/0.45 NACL 1,000 ML IV PRN (12:30)
--- NOTE | 2017-11-21 17:15 | NUR ---
ACCUCHECK ACCUCHECK DONE NO INSULIN COVERAGE GIVEN PT AWAITING MIDLINE INSERTION MD AWARE, WILL CONTINUE TO MONITOR
--- NOTE | 2017-11-21 19:15 | NUR ---
RN OPENING NOTES RECEIVED REPORT AND PATIENT FROM MORNING SHIFT.
--- NOTE | 2017-11-21 19:27 | NUR ---
RN CLOSING NOTES PATIENT RESTING IN BED, EASILY AROUSABLE. NON-VERBAL WITH EYE OPENING RESPONSE. NO SIGNS OF DISTRESS OR DISCOMFORT. RESPIRATIONS EVEN AND UNLABORED.NO IV ACCESS AT THIS TIME, AWARE, PER RN [employer] PLANT OPERATIONS ENGINEER AND MANAGER STYLIST PT TO HAVE MIDLINE INSERTED TONIGHT WILL CONTINUE TO MONITOR. HAS G-TUBE INPLACE AND CLAMPED, NPO AT THIS TIME NO MEDICATIONS THROUGH GT AT THIS TIME PER ORDERS. ALL NEEDS MET, SAFETY MEASURES IN PLACE. BED IN LOW LOCKED POSITION WITH SIDE RAILS X2. CALL LIGHT WITHIN REACH, ENDORSED TO NEXT SHIFT FOR CONTINUITY OF CARE
[2017-11-21 20:00] VITALS: BP 138/54
[2017-11-21] MEDS: MUPIROCIN OINT 2% 22 GM TUBE SCH (20:52)
--- NOTE | 2017-11-21 21:00 | NUR ---
PATIENT WITH NEW RIGHT UPPER ARM MIDLINE. PATENT AND INTACT. NO SIGNS OF INFILTRATION OR PHLEBITIS
[2017-11-22 04:00] VITALS: BP 119/76
[2017-11-22] MEDS: BLOOD SUGAR DIAGNOSTIC 1 EACH STRIP IN SCH ×3 (05:08→17:09)
[2017-11-22] MEDS: INSULIN REGULAR, HUMAN 100 UNIT/ML 3 ML VIAL SQ PRN ×2 (05:08→18:02)
--- NOTE | 2017-11-22 06:31 | NUR ---
MS RN CLOSING NOTES. PATIENT IS IN BED. EASILY AROUSABLE. [id number] WITH EYE OPENING RESPONSE. NO SIGNS OF DISTRESS OR SOB. RESPIRATIONS EVEN AND UNLABORED. MIDLINE ON RIGHT UPPER ARM PATIENT AND INTACT. HAS A CLAMPED GT IN PLACE. NPO AT THIS TIME. NO GT MEDICATIONS AT THIS TIME PER MD ORDER. CALL LIGHT WITHIN REACH.
--- NOTE | 2017-11-22 07:30 | NUR ---
PT RECEIVED RESTING COMFORTABLY IN BED WITH EYES CLOSED. NO S/S OR C/O PAIN OR DISTRESS NOTED. SIDE RAILS UP X2, CALL LIGHT LEFT WITHIN REACH. WILL CONTINUE PLAN OF CARE.
[2017-11-22 08:00] VITALS: BP 127/68
[2017-11-22] MEDS: PANTOPRAZOLE 40 MG VIAL IV SCH (08:23)
[2017-11-22] MEDS: MUPIROCIN OINT 2% 22 GM TUBE SCH ×2 (08:29→20:30)
[2017-11-22] MEDS: LACTOBACILLUS RHAMNOSUS GG 1 EACH CAP.SPRINK PO SCH ×2 (08:29→17:09)
[2017-11-22] MEDS ORDERED: GLYTROL 1,000 ML BAG GT PRN (14:00)
[2017-11-22 16:00] VITALS: BP 149/79
[2017-11-22] MEDS: CLOBETASOL 0.05% CREAM 15 GM TUBE TP SCH ×2 (17:23→20:26)
--- NOTE | 2017-11-22 19:00 | NUR ---
CHANGE OF SHIFT REPORT PT RESTING COMFORTABLY IN BED WITH EYES CLOSED. NO S/S OR C/O PAIN OR DISTRESS NOTED. SIDE RAILS UP X2, CALL LIGHT LEFT WITHIN REACH. PT KEPT CLEAN, DRY, AND COMFORTABLE. NO SIGNIFICANT CHANGES SINCE PREVIOUS SHIFT. REPORT GIVEN TO JOANNA DUFFY.
[2017-11-22 20:00] VITALS: BP 125/69
--- NOTE | 2017-11-22 21:40 | NUR ---
AGER TENDER NOTES PATIENT IS AWAKE, NON VERBAL, AND EASILY AROUSABLE. PICKED UP BY EMT STAFF VIA BRIIRJOSE. FAMILY "GRACIELA MURILLO" MADE AWARE." PICTURES OF PATIENT'S SKIN ASSESSMENT IS IN THE CHART. REMOVED MIDLINE FROM UPPER RIGHT ARM USING STERILE TECHNIQUE. GIVEN DISCHARGE INSTRUCTIONS AND MEDICATIONS TO EMT STAFF. PATIENT WITH NO BELONGINGS UPON DISCHARGE. GTUBE IS IN PLACE AND INTACT UPON DISCHARGE. VITAL SIGNS STABLE AND WITHIN NORMAL LIMITS UPON DISCHARGE. PATIENT LEFT WITH EMT STAFF HEADED HOME.
== END 2017-11-22 20:40 | disposition home or self-care (01) | DRG 393 ==
LOC: MEDSG1 21:20
PROVIDERS: ADMIT Internal Medicine; ATTEND Internal Medicine
PROC: 05H533Z Insertion of Infusion Device into Right Subclavian Vein, Percutaneous Approach (ICD-10-PCS; 2017-11-21)
PROC: B546ZZA Ultrasonography of Right Subclavian Vein, Guidance (ICD-10-PCS; 2017-11-21)
PROC: 0D20XUZ Change Feeding Device in Upper Intestinal Tract, External Approach (ICD-10-PCS; principal; 2017-11-22 11:45)
DX: K94.23 Gastrostomy malfunction (principal); G93.41 Metabolic encephalopathy; E46 Unspecified protein-calorie malnutrition; E87.0 Hyperosmolality and hypernatremia; L12.0 Bullous pemphigoid; L89.620 Pressure ulcer of left heel, unstageable; L89.610 Pressure ulcer of right heel, unstageable; L89.890 Pressure ulcer of other site, unstageable; E11.9 Type 2 diabetes mellitus without complications; E03.9 Hypothyroidism, unspecified; E78.5 Hyperlipidemia, unspecified; F03.90 Unspecified dementia, unspecified severity, without behavioral disturbance, psychotic disturbance, mood disturbance, and anxiety; I10 Essential (primary) hypertension; I25.10 Atherosclerotic heart disease of native coronary artery without angina pectoris; I25.2 Old myocardial infarction; L98.8 Other specified disorders of the skin and subcutaneous tissue; Y84.9 Medical procedure, unspecified as the cause of abnormal reaction of the patient, or of later complication, without mention of misadventure at the time of the procedure; Y73.8 Miscellaneous gastroenterology and urology devices associated with adverse incidents, not elsewhere classified; Y92.009 Unspecified place in unspecified non-institutional (private) residence as the place of occurrence of the external cause; Z79.4 Long term (current) use of insulin; F44.4 Conversion disorder with motor symptom or deficit
CPT/HCPCS: 36415; 43761; 71010-TC; 80048-TC; 80053-TC; 80061-TC; 82962-TC; 83735-TC; 84100-TC; 84443-TC; 84484-TC; 85025-TC; 87081-TC; C9113; J0456; J0696; J1815; J2310; J3475; J3490; J7030; J7060; Z7610